=== PATIENT | male | born 1945 | race Caucasian/White ===

== ENCOUNTER 2017-12-10 10:34 | Emergency (ER) | payer MEDICARE, BC, SELFPAY ==
--- NOTE | 2017-12-10 10:43 | DI.RAD.S_ITS ---
PROCEDURE: XR CHEST 1V INDICATIONS: Pacemaker issue TECHNIQUE: One view of the chest was acquired. COMPARISON: [facility], , CHEST 1 VIEW, 05/01/2017, 15:34. FINDINGS: Surgical changes and devices: Cardiac AICD as before Lungs and pleura: No pleural effusions or pneumothorax. Lungs are clear. Mediastinum: Mediastinal contours appear normal. Heart size is normal. Bones and chest wall: No suspicious bony lesions. Overlying soft tissues appear unremarkable. IMPRESSION: No acute disease. Dictated by: Polo Llanes M.D. on 12/10/2017 at 11:42 Approved by: Polo Llanes M.D. on 12/10/2017 at 11:45
[2017-12-10 10:52] VITALS: BP 110/60; PULSE 85; RESP 23; TEMP 36.8; O2SAT 98; BMI 35.5
--- NOTE | 2017-12-10 11:00 | ED_ITS ---
HPI - Arrhythmia/Palpitations General Chief Complaint: Arrhythmia/Palpitations Stated Complaint: PACEMAKER ALARM GOING OFF Time Seen by Provider: 12/10/17 10:42 Source: patient Mode of arrival: ambulatory Limitations: no limitations History of Present Illness HPI narrative: Patient is a 72-year-old male who has a pacemaker in place for atrial fibrillation is also on Eliquis here for evaluation because his pacemaker has been beeping. Patient states that he initially hurt it a couple days ago and thought that it was his watch that was beeping. He states that this morning he did not have his watch on when he heard the BP again when he put his ear down he noticed that it was the pacemaker. He denies any chest pain or shortness of breath. States that he is taking his medication. He also has a defibrillator in place and states that his defibrillator has not fired. He states that he has been feeling more fatigued over the past month. He has a [employer] pacemaker/defibrillator Related Data Home Medications Medication Instructions Recorded Confirmed MULTIVITAMIN (One Daily 1 tab PO Q DAY #0 03/17/11 11/09/17 Multivitamin) lisinopril 10 mg PO QDAY #0 03/17/11 11/09/17 apixaban [Eliquis] 5 mg PO BID #0 09/15/16 11/09/17 levothyroxine [Synthroid] 125 mcg PO QAM #0 09/15/16 11/09/17 naproxen 500 mg PO QDAY #0 09/15/16 11/09/17 [PROBIOTIC] 1 tab PO QPM #0 09/06/17 11/09/17 albuterol sulfate [Ventolin HFA] 2 puff INH QDAY PRN #0 09/06/17 11/09/17 beclomethasone dipropionate [Qvar] 1 puff INH BID #0 09/06/17 11/09/17 buspirone 15 mg PO BID #0 09/06/17 11/09/17 fluticasone [Flonase Allergy 1 spray INTRANASAL QDAY #0 09/06/17 11/09/17 Relief] rosuvastatin [Crestor] 10 mg PO HS #0 09/06/17 11/09/17 Previous Rx's Medication Instructions Recorded trazodone 50 mg PO HS #90 tab 02/03/17 fluoxetine 40 mg capsule 40 mg PO QDAY 90 Days #90 cap 11/25/17 Allergies Allergy/AdvReac Type Severity Reaction Status Date / Time No Known Allergies Allergy Uncoded 11/09/17 14:44 Review of Systems Constitutional Denies chills, Reports fatigue and Denies headache(s) ENT Ears, Nose, Mouth, and Throat: Denies dysphagia, Denies vertigo, Denies dizziness and Denies headache(s) Cardiovascular Denies chest pain, Denies palpitations and Denies dyspnea Comments: Has not felt his defibrillator go off Respiratory Denies cough and Denies dyspnea Gastrointestinal Gastrointestinal: Denies melena, Denies dysphagia and Denies diarrhea Genitourinary Denies dysuria Musculoskeletal Denies myalgias and Denies arthralgias Integumentary/Breasts Denies lesions and Denies rash Neurologic Denies vertigo, Denies dizziness and Denies headache(s) Endocrine Reports fatigue and Denies palpitations Hematologic/Lymphatic Denies easy bleeding and Denies easy bruising [facility] Surgical History History of gastric bypass History of hip replacement History of tonsillectomy Presence of cardiac pacemaker Family History Sister Mental health problem Social History Smoking Status: Former smoker Exam Initial Vital Signs Initial Vital Signs: Vital Signs Temperature 98.3 F 12/10/17 10:52 Pulse Rate 85 12/10/17 10:52 Respiratory Rate 23 12/10/17 10:52 Blood Pressure 110/60 12/10/17 10:52 Pulse Oximetry 98 12/10/17 10:52 Const General: cooperative, healthy appearing, comfortable, well developed, well groomed and No acute distress Orientation: alert, awake and oriented x3 [facility] Head: normal to inspection, normocephalic and atraumatic Chest Other: Pacemaker in place left upper chest without tenderness to palpation Resp Effort & Inspection: normal respiratory effort Auscultation: clear to auscultation bilaterally Cardio Rate: regular rate Rhythm: abnormal rhythm (Irregular) GI Inspection: non-distended Palpation: soft, No firm and No tender Skin Lesions: no lesions Rashes: no rashes Neuro General: alert, awake and oriented x3 Cognition: normal cognition Speech: speech normal Extrem General: normal to inspection and capillary refill normal Psych Appearance: grossly normal and well kempt Course Orders Ordered: ED Orders 12/10/17 10:40 EKG-12 Lead Stat 12/10/17 10:43 XR chest 1V Stat 12/10/17 11:20 Basic Metabolic Panel Stat Complete Blood Count AUTO DIFF Stat Vital Signs - 8 hr 12/10/17 10:52 12/10/17 11:10 12/10/17 12:18 Temperature 98.3 F Pulse Rate 85 77 70 Respiratory Rate 23 17 16 Blood Pressure 110/60 Blood Pressure [Left Arm] 101/45 L 111/70 Pulse Oximetry 98 96 96 12/10/17 12:52 12/10/17 13:15 12/10/17 14:13 Temperature Pulse Rate 71 70 81 Respiratory Rate 19 15 15 Blood Pressure 143/106 H Blood Pressure [Left Arm] 106/52 L 122/75 H Pulse Oximetry 97 98 97 MDM - Arrhythmia/Palpitations Medical Records Attestation: I reviewed the patient's medical records. Lab Data Attestation: I reviewed the patient's lab results. Result diagrams: 12/10/17 11:20 12/10/17 11:20 Lab Results 12/10/17 12/10/17 Range/Units 11:20 11:20 WBC 4.5 (4.5-11.0) X10^3/uL RBC 4.99 (4.5-5.9) X10^6/uL Hgb 15.0 (13.5-17.5) g/dL Hct 44.7 (41-53) % MCV 89.7 (80-100) fL MCH 30.1 (26-34) PG MCHC 33.5 (30-36) % RDW 13.8 (11.6-14.8) % Plt Count 243 (150-400) X10^3/uL Neut % (Auto) 70.1 (50-75) % Lymph % (Auto) 19.9 L (25-40) % [place] % (Auto) 8.5 (3-14) % Eos % (Auto) 1.2 L (2-4) % Baso % (Auto) 0.3 (0-2) % Neut # (Auto) 3100 (2021-8779) /uL Sodium 140 (137-145) mmol/L Potassium 4.2 (3.4-5.1) mmol/L Chloride 104 (98-107) mmol/L Carbon Dioxide 28 (22-32) mmol/L BUN 19 (9-20) mg/dL Creatinine 1.00 (0.66-1.25) mg/dL Estimated GFR > 60.0 (>60) mL/min BUN/Creatinine Ratio 19.0 (6-22) Glucose 127 H (80-110) mg/dL Calcium 9.7 (8.4-10.2) mg/dL Imaging Data Chest x-ray: Radiologist's impression: PROCEDURE: XR CHEST 1V INDICATIONS: Pacemaker issue TECHNIQUE: One view of the chest was acquired. COMPARISON: [facility], , CHEST 1 VIEW, 05/01/2017, 15:34. FINDINGS: Surgical changes and devices: Cardiac AICD as before Lungs and pleura: No pleural effusions or pneumothorax. Lungs are clear. Mediastinum: Mediastinal contours appear normal. Heart size is normal. Bones and chest wall: No suspicious bony lesions. Overlying soft tissues appear unremarkable. IMPRESSION: No acute disease. Dictated by: Polo Llanes M.D. on 12/10/2017 at 11:42 Approved by: Polo Llanes M.D. on 12/10/2017 at 11:45 ECG Data Attestation: I personally reviewed and interpreted this ECG as follows: Prior ECG tracings: available for review Interpretation: Prior EKG dated March 07, 2012 Atrial fibrillation Ventricular rate of [address] T wave changes EKG dated today time 1040 hr Irregular rhythm Ventricular rate at 80 Ventricularly paced QRS 132 milliseconds MDM Narrative Medical decision making narrative: Patient denies any chest pain. Chest x-ray shows that the leads are in the correct spot and not broken. Uncertain as the rhythm on the EKG. Has 2 different QRS morphologies but does appear to be ventricularly paced. [employer] came to interrogate the pacemaker and states that the patient has been in AFib for the past 6 days. The beeping that the patient was hearing was not alarmed that was set on the pacemaker to be put when he has been in AFib for longer than 6 hr. The [employer] rep states that this alarm was not set at to notify the clinic. I discussed the case with Dr. Mi with Cardiology who states that if the patient's rate is controlled, he is anticoagulated, is not hypotensive that the patient can be discharged home and follow up in the clinic at the beginning of next week. The patient does fulfill all of these criteria. I discussed this with the patient. His is at bedside. They were asking to go home. They are given return precautions. They expressed understanding and agreement with plan. Discharge Plan Departure Patient Disposition: Home, Self-Care Clinical Impression: A-fib, Pacemaker Discharge Date/Time: 12/10/17 14:15 Interventions: ED Discharge Assessment Last Done: 12/10/17 14:13 Instructions: DI for Atrial Fibrillation Activity Restrictions/Additional Instructions: Continue all of your medications as directed. Contact your aviation consultant on Tuesday morning for a follow-up. Return to the emergency department for any new symptoms to include chest pain, shortness of breath, palpitations, or any other concerning symptoms. Prescriptions: No Action lisinopril 10 MG tablet 10 mg PO QDAY Qty: 0 RF: 0 MULTIVITAMIN (One Daily Multivitamin) 1 tab PO Q DAY Qty: 0 RF: 0 levothyroxine [Synthroid] 125 MCG tablet 125 mcg PO QAM Qty: 0 RF: 0 naproxen 500 MG tablet 500 mg PO QDAY Qty: 0 RF: 0 apixaban [Eliquis] 5 MG tablet 5 mg PO BID Qty: 0 RF: 0 trazodone 50 MG tablet 50 mg PO HS Qty: 90 RF: 1 buspirone 15 MG tablet 15 mg PO BID Qty: 0 RF: 0 rosuvastatin [Crestor] 10 MG tablet 10 mg PO HS Qty: 0 RF: 0 beclomethasone dipropionate [Qvar] 80 MCG/PUFF aerosol 1 puff INH BID Qty: 0 RF: 0 albuterol sulfate [Ventolin HFA] 90 MCG/PUFF HFA aerosol inhaler 2 puff INH QDAY PRNQty: 0 RF: 0 [PROBIOTIC] 1 tab PO QPM Qty: 0 RF: 0 fluticasone [Flonase Allergy Relief] 9.9 ML spray,suspension 1 spray Intranasal QDAY Qty: 0 RF: 0 fluoxetine 40 mg capsule 40 mg PO QDAY 90 Days Qty: 90 RF: 3
--- NOTE | 2017-12-10 11:02 | PC.NURSE ---
called [employer] for pt. waiting now on a call back from local rep.
[2017-12-10 11:10] VITALS: BP 101/45; PULSE 77; RESP 17; O2SAT 96
[2017-12-10 11:29] LABS: Add Manual Diff / Slide Review NO; Basophils Percent Auto 0.3 % (0-2); Eosinophils Percent Auto 1.2 % (2-4); Hematocrit 44.7 % (41-53); Lymphocytes Percent Auto 19.9 % (25-40); Mean Corpuscular HGB Conc 33.5 % (30-36); Mean Corpuscular Hemoglobin 30.1 PG (26-34); Mean Corpuscular Volume 89.7 fL (80-100); Monocytes Percent Auto 8.5 % (3-14); Neutrophils Absolute Auto 3100 /uL (3000-5900); Neutrophils Percent Auto 70.1 % (50-75); Platelet Count 243 X10^3/uL (150-400); Red Blood Cell Count 4.99 X10^6/uL (4.5-5.9); Red Cell Distribution Width 13.8 % (11.6-14.8); White Blood Cell Count 4.5 X10^3/uL (4.5-11.0)
--- NOTE | 2017-12-10 11:29 | PC.NURSE ---
Pt reports has been hearing humming, initially thought it was his watch, but once watch was removed, he continued to hear humming. He believes it is his pacemaker.
[2017-12-10 11:45] LABS: Blood Urea Nitrogen 19 mg/dL (9-20); Calcium 9.7 mg/dL (8.4-10.2); Carbon Dioxide 28 mmol/L (22-32); Chloride 104 mmol/L (98-107); Estimated Glomerular Filt Rate > 60.0 mL/min (>60); Glucose 127 mg/dL (80-110); HEMOLYSIS 17 (0-50); Potassium 4.2 mmol/L (3.4-5.1); Sodium 140 mmol/L (137-145)
[2017-12-10 12:18] VITALS: BP 111/70; PULSE 70; RESP 16; O2SAT 96
[2017-12-10 12:52] VITALS: BP 106/52; PULSE 71; RESP 19; O2SAT 97
[2017-12-10 13:15] VITALS: BP 122/75; PULSE 70; RESP 15; O2SAT 98
[2017-12-10 14:13] VITALS: BP 143/106; PULSE 81; RESP 15; O2SAT 97
== END 2017-12-10 14:15 | disposition home or self-care (01) ==
PROVIDERS: Emergency Provider Emergency Medicine; Family Provider Family Medicine; PCP Family Medicine
DX: I48.91 Unspecified atrial fibrillation (principal); Z95.0 Presence of cardiac pacemaker
CPT/HCPCS: 36591; 71045; 80048; 85025; 93005; 99283; 99285

== ENCOUNTER 2019-04-03 14:05 | Emergency (ER) | payer MEDICARE, BC, SELFPAY ==
[2019-04-03 14:14] VITALS: BP 163/104; PULSE 67; RESP 22; TEMP 36.7; O2SAT 98
--- NOTE | 2019-04-03 14:17 | DI.RAD.S_ITS ---
PROCEDURE: XR HIP W PEL IF DONE RT 2V INDICATIONS: felt pop in right hip, increased pain, history of JOSE DAVID TECHNIQUE: AP pelvis with lateral view(s) of the right hip(s). COMPARISON: CT IVP 09/21/2017. FINDINGS: Bones: Bilateral total hip arthroplasties. No periprosthetic lucency to suggest loosening or infection. The screw adjacent to the right femoral stem partially visualized. No dislocation. No fracture seen. Osteopenia. Pelvic ring appears intact. No suspicious bony lesions. Soft tissues: The visualized bowel gas pattern is normal. No suspicious soft tissue calcifications. IMPRESSION: No fracture or dislocation. Stable appearance of the bilateral total hip arthroplasties. Dictated by: Rafael Tapia M.D. on 04/03/2019 at 15:02 Approved by: Rafael Tapia M.D. on 04/03/2019 at 15:04
[2019-04-03] MEDS: MORPHINE 4 MG/ML INJ IV (14:44)
--- NOTE | 2019-04-03 15:02 | ED_ITS ---
HPI - Extremity Injury (Lower) <BETTY Barnhart - Last Filed: 04/03/19 15:54> General Chief Complaint: Extremity Injury, Lower Stated Complaint: RIGHT HIP INJURY Time Seen by Provider: 04/03/19 14:10 Source: patient and family Mode of arrival: Wheelchair Limitations: no limitations History of Present Illness HPI Narrative: This is a 73-year-old gentleman, former smoker, who presents to ED with friend with chief complain of nontraumatic right hip pain since Tuesday. 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 Patient reports after he stood up from a chair and took a couple of steps he felt sudden and severe pain. Patient has been using a with cane to ambulate up until today. Patient was not able to walk due to severe pain today. Patient reports intact sensation. Patient denies fever, chills, nausea or vomiting, rash or warm to touch on the right hip. Patient had taken Naprosyn, gabapentin, methocarbamol at home prior coming into ED for pain management but with poor pain management. Patient reports he does have an appointment with Dr. Hartley at [facility] orthopedic tomorrow but was unable to wait until then and due to severe pain. Related Data Home Medications Medication Instructions Recorded Confirmed MULTIVITAMIN (One Daily 1 tab PO Q DAY #0 03/17/11 03/16/19 Multivitamin) lisinopril 10 mg PO QDAY #0 03/17/11 03/16/19 apixaban [Eliquis] 5 mg PO BID #0 09/15/16 03/16/19 levothyroxine [Synthroid] 125 mcg PO QAM #0 09/15/16 03/16/19 naproxen 500 mg PO QDAY #0 09/15/16 03/16/19 [PROBIOTIC] 1 tab PO QPM #0 09/06/17 03/16/19 albuterol sulfate [Ventolin HFA] 2 puff INH QDAY PRN #0 09/06/17 03/16/19 beclomethasone dipropionate [Qvar] 1 puff INH BID #0 09/06/17 03/16/19 fluticasone propionate [Flonase 1 spray INTRANASAL QDAY #0 09/06/17 03/16/19 Allergy Relief] furosemide 20 mg tablet 10 mg PO DAILY tab 01/25/18 03/16/19 metoprolol tartrate 25 mg tablet 25 mg PO ONCE tab 01/25/18 03/16/19 metoprolol succinate 50 mg PO 90 Days #90 tab 05/02/18 03/16/19 tablet,extended release 24 hr methocarbamol 500 mg tablet 500 mg PO TID 12/22/18 03/16/19 buspirone 15 mg tablet 15 mg PO BID tab 01/26/19 03/16/19 spironolactone 25 mg tablet 25 mg PO DAILY tab 01/26/19 03/16/19 levothyroxine 137 mcg tablet 137 mcg PO DAILY tab 03/16/19 03/16/19 mirabegron 50 mg tablet,extended mg PO 03/16/19 03/16/19 release 24 hr Previous Rx's Medication Instructions Recorded trazodone 50 mg tablet 50 mg PO HS #90 tab 12/20/18 fluoxetine 20 mg capsule 40 mg PO QDAY #20 cap 01/26/19 hydrocodone-acetaminophen [[place]wood] 1 tab PO Q6H PRN #10 tab 04/03/19 Allergies Allergy/AdvReac Type Severity Reaction Status Date / Time No Known Drug Allergies Allergy Verified 04/03/19 14:16 Review of Systems <BETTY Barnhart - Last Filed: 04/03/19 15:54> Review of Systems Narrative: General: Denies fever, chills, fatigue, malaise, sweats. HEENT: Denies sinus pain, ear pain, sore throat, difficulty swallowing, dizziness. Respiratory: Denies dyspnea, cough, wheezing, hemoptysis, sputum. Cardiovascular: Denies chest pain, palpitations, orthopnea, edema. Gastrointestinal: Denies nausea, vomiting, abdominal pain, diarrhea, constipation, melena. : Denies dysuria, frequency, incontinence, hematuria, urinary retention. Musculoskeletal: See HPI Skin: Denies rash, skin lesions, or other. Neurologic: Denies weakness, headache, numbness, change in speech, confusion, seizures, incoordination. Psychiatric: No concerning psychosocial issues. 12-point review of systems is negative except for those stated above. Patient History <BETTY Barnhart - Last Filed: 04/03/19 15:54> Surgical History History of gastric bypass History of hip replacement History of tonsillectomy Presence of cardiac pacemaker Family History Sister Mental health problem Social History Smoking Status: Former smoker Substance Use Type: does not use Exam <BETTY Banrhart - Last Filed: 04/03/19 15:54> Narrative Exam Narrative: General appearance: well developed, well nourished, in moderate distress with facial grimacing morning obviously due to pain. Head: normocephalic, atraumatic, no scalp lesions, non-tender. Eye: pupil equal, round. EOMI. Nose: nares patent. Oral: mucosa moist. Neck/Thyroid: neck supple, full range of motion, no visible masses. Skin: no suspicious rashes, lesions over visible areas. Warm and dry. Heart: no clubbing, no cyanosis, no edema. Lungs: Breathing even and unlabored. No stridor. No accessory muscles used. Chest: normal shape and expansion. Abdomen: non-obese, non-distended. Neurologic: alert and oriented. Cognitive exam, [employer] and PNS grossly intact on informal exam. Psych: good eye contact, normal affect. Initial Vital Signs Initial Vital Signs: Vital Signs Temperature 98.0 F 04/03/19 14:14 Pulse Rate 67 04/03/19 14:14 Respiratory Rate 22 04/03/19 14:14 Blood Pressure 163/104 H 04/03/19 14:14 Pulse Oximetry 98 04/03/19 14:14 Extrem Right upper extremity: normal to inspection and full ROM Left upper extremity: normal to inspection and full ROM Right lower extremity: hip/thigh Details: normal to inspection and tenderness; no swelling, ROM normal (Due to pain with little movements), no lacerations and no unusual warmth and foot Details: normal capillary refill, no edema and vascular exam Details: dorsalis pedis pulse present and normal capillary refill Left lower extremity: normal to inspection and full ROM <Shayla Goins DO - Last Filed: 04/04/19 07:13> Initial Vital Signs Initial Vital Signs: Vital Signs Temperature 98.0 F 04/03/19 14:14 Pulse Rate 67 04/03/19 14:14 Respiratory Rate 22 04/03/19 14:14 Blood Pressure 163/104 H 04/03/19 14:14 Pulse Oximetry 98 04/03/19 14:14 Scores <Rahul LianSOM horneP - Last Filed: 04/03/19 15:54> GCS Rosebud coma scale eye opening: Spontaneous Rosebud coma scale verbal response: Orientated Rosebud coma scale motor response: Obey commands Derrick coma scale total score: 15 Course <Rahul ReaMerlySOM horneP - Last Filed: 04/03/19 15:54> Orders Ordered: Discontinued Medications Morphine Sulfate (Morphine) 4 mg IV NOW ONE Stop: 04/03/19 14:26 Last Admin: 04/03/19 14:44 Dose: 4 mg Documented by: JACKSON Vital Signs Vital signs: Vital Signs - 8 hr 04/03/19 14:14 04/03/19 15:38 Temperature 98.0 F Pulse Rate 67 76 Respiratory Rate 22 18 Blood Pressure 163/104 H Blood Pressure [Right Wrist] 162/102 H Pulse Oximetry 98 96 <Shayla Goins DO - Last Filed: 04/04/19 07:13> Orders Ordered: Discontinued Medications Morphine Sulfate (Morphine) 4 mg IV NOW ONE Stop: 04/03/19 14:26 Last Admin: 04/03/19 14:44 Dose: 4 mg Documented by: JACKSON Vital Signs Vital signs: Vital Signs - 8 hr 04/03/19 14:14 04/03/19 15:38 Temperature 98.0 F Pulse Rate 67 76 Respiratory Rate 22 18 Blood Pressure 163/104 H Blood Pressure [Right Wrist] 162/102 H Pulse Oximetry 98 96 MDM - Extremity Injury (Lower) <Rahul LianSOM horneP - Last Filed: 04/03/19 15:54> Differential Diagnosis Differential diagnosis: Likely other (Acute hip pain, hip strain, hip nondisplaced fracture, hip dislocation) Medical Records Attestation: I reviewed the patient's medical records. Imaging Data XR-Hip RT: Radiologist's impression: [address] [address] XRay Report Signed Patient: Quentin Downinglis#: [id number] : 4Acct:[id number] Age/Sex: 73 / MDate of Service: 04/03/19 Loc: ED Accession Number: [id number] Procedure: XR hip w pel if done RT 2V Ordering Provider: Rahul Dobbins PROCEDURE: XR HIP W PEL IF DONE RT 2V INDICATIONS: felt pop in right hip, increased pain, history of JOSE DAVID TECHNIQUE: AP pelvis with lateral view(s) of the right hip(s). COMPARISON: CT IVP 09/21/2017. FINDINGS: Bones: Bilateral total hip arthroplasties. No periprosthetic lucency to suggest loosening or infection. The screw adjacent to the right femoral stem partially visualized. No dislocation. No fracture seen. Osteopenia. Pelvic ring appears intact. No suspicious bony lesions. Soft tissues: The visualized bowel gas pattern is normal. No suspicious soft tissue calcifications. IMPRESSION: No fracture or dislocation. Stable appearance of the bilateral total hip arthroplasties. Dictated by: Rafael Tapia M.D. on 04/03/2019 at 15:02 Approved by: Rafael Tapia M.D. on 04/03/2019 at 15:04 [facility] Narrative Medical decision making narrative: This is a 73-year-old gentleman who presents to ED with non traumatic right hip pain after he stood up from a chair and to couple of steps forward. Patient has history of artificial her bilateral hips for last 26 yrs. Patient denies fever, chills, nausea or vomiting, or warm to touch. Patient reports every little movements causes severe pain. Patient was medicated with IV morphine and x-ray test was obtained on right hip and shows no acute findings such as fracture, dislocation. Patient was able to ambulate with a walker that was provided from ED in stable gait. Patient has an appointment with orthopedic doctor tomorrow at [facility]. Patient is being discharged to home with [place] for pain management and advised to continue with [id number] medication. Return precautions were discussed with the patient and patient verbalized understanding and agrees with the treatment plan. Discharge Plan Departure Patient Disposition: Home Clinical Impression: Acute pain of right hip Discharge Date/Time: 04/03/19 15:49 Activity Restrictions/Additional Instructions: You have been diagnosed with [acute right hip pain. Right hip x-ray test does not show acute findings such as fractures or dislocation today. You were medicated with morphine IV while in ED which you so improvement in pain. You were able to ambulate with a walker and we will dispense walker for home use.]. What to do: *Take your medications as directed. Gracewood is narcotic pain medications any may cause drowsiness so please take precautions such as not to drive, drink alcohol, or operate any heavy equipments. It may cause constipation so please it high- fiber diet, increase her water intake and incorporating facu-ghr-[id number] stool softener as well. You can continue [id number] Tylenol Naprosyn if he does not interferes with Eliquis. You can take upto 4000 mg of tylenol in 24 hr period. *Follow up with your primary care provider in 2-3 days, call for an appointment. Please keep your appointment as scheduled with scheduled [facility] doctor tomorrow. Let them know you were seen in the ED and that we asked you to be seen in follow up. *Return to ED if you have any new, worsening, or concerning symptoms, such as [pain now managed with pain medication, numbness/tingling on affected leg, unable to ambulate, weakness to leg, fever or any acute concerns]. Prescriptions: New hydrocodone-acetaminophen [[place]wood] 5-325 mg tablet 1 tab PO Q6H PRN (Reason: pain) Qty: 10 RF: 0 No Action metoprolol tartrate 25 mg tablet 25 mg PO ONCE RF: 0 furosemide 20 mg tablet 10 mg PO DAILY RF: 0 spironolactone 25 mg tablet 25 mg PO DAILY RF: 0 metoprolol succinate 50 mg tablet extended release 24 hr PO 90 Days Qty: 90 RF: 0 methocarbamol 500 mg tablet 500 mg PO TID RF: 0 Myrbetriq 50 mg tablet extended release 24 hr PO RF: 0 levothyroxine 137 mcg tablet 137 mcg PO DAILY RF: 0 buspirone 15 mg tablet 15 mg PO BID RF: 0 lisinopril 10 MG tablet 10 mg PO QDAY Qty: 0 RF: 0 MULTIVITAMIN (One Daily Multivitamin) 1 tab PO Q DAY Qty: 0 RF: 0 levothyroxine [Synthroid] 125 MCG tablet 125 mcg PO QAM Qty: 0 RF: 0 naproxen 500 MG tablet 500 mg PO QDAY Qty: 0 RF: 0 apixaban [Eliquis] 5 MG tablet 5 mg PO BID Qty: 0 RF: 0 beclomethasone dipropionate [Qvar] 80 MCG/PUFF aerosol 1 puff INH BID Qty: 0 RF: 0 albuterol sulfate [Ventolin HFA] 90 MCG/PUFF HFA aerosol inhaler 2 puff INH QDAY PRNQty: 0 RF: 0 [PROBIOTIC] 1 tab PO QPM Qty: 0 RF: 0 fluticasone propionate [Flonase Allergy Relief] 9.9 ML spray,suspension 1 spray Intranasal QDAY Qty: 0 RF: 0 trazodone 50 mg tablet 50 mg PO HS Qty: 90 RF: 3 fluoxetine 20 mg capsule 40 mg PO QDAY Qty: 20 RF: 1 Referrals: [facility] [Provider Group] Matheus Jensen MD [Primary Care Provider] -
[2019-04-03 15:38] VITALS: BP 162/102; PULSE 76; RESP 18; O2SAT 96
== END 2019-04-03 15:49 | disposition home or self-care (01) ==
PROVIDERS: Emergency Provider Nurse Practitioner Family; Family Provider Family Medicine; PCP Family Medicine
DX: M25.551 Pain in right hip (principal); Z96.643 Presence of artificial hip joint, bilateral
CPT/HCPCS: 73502; 96374; 99282; 99284; J2270

== ENCOUNTER 2019-05-10 10:53 | Emergency (ER) | payer MEDICARE, BC, SELFPAY ==
[2019-05-10 11:00] VITALS: BP 153/96; PULSE 72; RESP 28; TEMP 36.8; O2SAT 95; BMI 39.9
[2019-05-10 11:34] VITALS: BP 150/87; PULSE 70; RESP 24; O2SAT 96
--- NOTE | 2019-05-10 11:34 | ED_ITS ---
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 He states he went for a scheduled EKG at Dr. ireland office and they didn't like the way he looked so they sent him here. 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 He states when he walks he has to stop after a couple see to take a break. He states if he tries to lie flat he gets very short of breath. He states he has had increasing swelling in his lower extremities. He denies any chest pain or pressure, no syncope or lightheadedness. No fevers or chills. He has an up cough that is been mildly productive with clear phlegm. He has had some mild constipation no issues with urination. Patient does have a history of CHF and takes diuretics. Related Data Home Medications Medication Instructions Recorded Confirmed MULTIVITAMIN (One Daily 1 tab PO Q DAY #0 03/17/11 03/16/19 Multivitamin) lisinopril 10 mg PO QDAY #0 03/17/11 03/16/19 apixaban [Eliquis] 5 mg PO BID #0 09/15/16 03/16/19 levothyroxine [Synthroid] 125 mcg PO QAM #0 09/15/16 03/16/19 naproxen 500 mg PO QDAY #0 09/15/16 03/16/19 [PROBIOTIC] 1 tab PO QPM #0 09/06/17 03/16/19 albuterol sulfate [Ventolin HFA] 2 puff INH QDAY PRN #0 09/06/17 03/16/19 beclomethasone dipropionate [Qvar] 1 puff INH BID #0 09/06/17 03/16/19 fluticasone propionate [Flonase 1 spray INTRANASAL QDAY #0 09/06/17 03/16/19 Allergy Relief] furosemide 20 mg tablet 10 mg PO DAILY tab 01/25/18 03/16/19 metoprolol tartrate 25 mg tablet 25 mg PO ONCE tab 01/25/18 03/16/19 metoprolol succinate 50 mg PO 90 Days #90 tab 05/02/18 03/16/19 tablet,extended release 24 hr methocarbamol 500 mg tablet 500 mg PO TID 12/22/18 03/16/19 buspirone 15 mg tablet 15 mg PO BID tab 01/26/19 03/16/19 spironolactone 25 mg tablet 25 mg PO DAILY tab 01/26/19 03/16/19 levothyroxine 137 mcg tablet 137 mcg PO DAILY tab 03/16/19 03/16/19 mirabegron 50 mg tablet,extended mg PO 03/16/19 03/16/19 release 24 hr Previous Rx's Medication Instructions Recorded trazodone 50 mg tablet 50 mg PO HS #90 tab 12/20/18 fluoxetine 20 mg capsule 40 mg PO QDAY #20 cap 01/26/19 hydrocodone-acetaminophen [[place]] 1 tab PO Q6H PRN #10 tab 04/03/19 furosemide [Lasix] 40 mg PO DAILY #4 tab 05/10/19 Allergies Allergy/AdvReac Type Severity Reaction Status Date / Time No Known Drug Allergies Allergy Verified 04/03/19 14:16 Review of Systems Review of Systems ROS Unobtainable: All systems reviewed & are unremarkable except as noted in HPI and below Patient History Surgical History History of gastric bypass History of hip replacement History of tonsillectomy Presence of cardiac pacemaker Social History Smoking Status: Former smoker Smoking Status: Former smoker alcohol intake frequency: holidays/special occasions only Substance Use Type: does not use Exam Narrative Exam Narrative: GEN: Obese well-appearing male, alert and oriented x 3, patient appears to be in mild distress. HEENT: Atraumatic, pupils are equal round reactive to light, extraocular movements are intact. HEART: Regular rate and rhythm without murmur, clicks, rubs. No JVD appreciated but this may be hard to appreciate secondary to patient's habitus. Patient has 2+ edema bilateral lower extremities. LUNGS:Lungs clear to auscultation, no wheezes, rales, crackles, chest moves symmetrically, no tachypnea accessory muscle use ABD:bowel sounds normal, soft, non-tender, no guarding, rebound, rigidity, no masses noted, no hepatosplenomegaly :No CVA tenderness MSCL: Non-tender. NEURO:CN 2-12 intact, sensation normal. SKIN: no rash, no erythema. Initial Vital Signs Initial Vital Signs: Vital Signs Temperature 98.2 F 05/10/19 11:00 Pulse Rate 72 05/10/19 11:00 Respiratory Rate 28 H 05/10/19 11:00 Blood Pressure 153/96 H 05/10/19 11:00 Pulse Oximetry 95 05/10/19 11:00 Course Orders Ordered: ED Orders 05/10/19 11:17 B Type Natriuretic Peptide Stat Basic Metabolic Panel Stat Complete Blood Count AUTO DIFF Stat Partial Thromboplastin Time Stat Prothrombin Time INR Stat Troponin & CK Cardiac Panel Stat 05/10/19 11:48 XR chest 1V Stat Discontinued Medications Furosemide (Lasix) 40 mg IV NOW ONE Stop: 05/10/19 11:48 Last Admin: 05/10/19 12:09 Dose: 40 mg Documented by: FLEX Vital Signs Vital signs: Vital Signs - 8 hr 05/10/19 11:00 05/10/19 11:34 05/10/19 12:58 Temperature 98.2 F Pulse Rate 72 70 Respiratory Rate 28 H 24 Blood Pressure 153/96 H Blood Pressure [Left Arm] 150/87 H Pulse Oximetry 95 96 93 05/10/19 13:15 Temperature Pulse Rate 70 Respiratory Rate Blood Pressure 157/92 H Blood Pressure [Left Arm] Pulse Oximetry 98 MDM - SOB/Dyspnea Lab Data Attestation: I reviewed the patient's lab results. Result diagrams: 05/10/19 11:17 05/10/19 11:17 Labs: Lab Results 05/10/19 05/10/19 05/10/19 Range/Units 11:17 11:17 11:17 WBC 5.6 (4.5-11.0) X10^3/uL RBC 4.40 L (4.5-5.9) X10^6/uL Hgb 13.2 L (13.5-17.5) g/dL Hct 39.6 L (41-53) % MCV 89.8 (80-100) fL MCH 30.0 (26-34) PG MCHC 33.4 (30-36) % RDW 13.9 (11.6-14.8) % Plt Count 271 (150-400) X10^3/uL Neut % (Auto) 77.8 H (50-75) % Lymph % (Auto) 11.5 L (25-40) % [place] % (Auto) 8.8 (3-14) % Eos % (Auto) 1.2 L (2-4) % Baso % (Auto) 0.7 (0-2) % Neut # (Auto) 4300 (2359-8241) /uL Lymph # (Auto) 600 L (2716-2735) /uL [place] # (Auto) 500 (0-900) /uL Eos # (Auto) 100 (0-450) /uL Baso # (Auto) 0 (0-100) /uL PT 18.5 H (10.1-12.7) SECONDS INR 1.6 H (0.9-1.3) APTT 32 (26.4-36.2) SECONDS Sodium 136 L (137-145) mmol/L Potassium 4.2 (3.4-5.1) mmol/L Chloride 101 (98-107) mmol/L Carbon Dioxide 29 (22-32) mmol/L BUN 15 (9-20) mg/dL Creatinine 0.70 (0.66-1.25) mg/dL Estimated GFR > 60.0 (>60) mL/min BUN/Creatinine Ratio 21.4 (6-22) Glucose 122 H (80-110) mg/dL Calcium 9.4 (8.4-10.2) mg/dL Total Creatine Kinase 89 (55-170) U/L CK-MB (CK-2) TNP CK-MB (CK-2) Rel Index TNP Troponin I < 0.012 (0.01-0.034) ng/mL B-Natriuretic Peptide 366 H (<100) Imaging Data Chest x-ray: Radiologist's impression: [address] [id number] XRay Report Signed Patient: Quentin Downing#: [id number] : 4Acct:[id number] Age/Sex: 73 / MDate of Service: 05/10/19 Loc: ED Accession Number: [id number] Procedure: XR chest 1V Ordering Provider: Shayla Goins D.O. PROCEDURE: XR CHEST 1V INDICATIONS: increasing shortness of breath TECHNIQUE: One view of the chest was acquired. COMPARISON: [facility], , CHEST 1 VIEW, 05/01/2017, 15:34. [facility], , XR CHEST 1V, 12/10/2017, 11:03. FINDINGS: Surgical changes and devices: There is a cardiac pacemaker with leads in appropriate position. Lungs and pleura: Mild pulmonary edema. Left basilar opacity may be consolidation or atelectasis. No large pleural effusions or pneumothorax. Mediastinum: Mediastinal contours appear normal. Heart size is normal. Bones and chest wall: No suspicious bony lesions. Overlying soft tissues appear unremarkable. IMPRESSION: Congestive heart failure. Dictated by: Stephen Saldaña M.D. on 05/10/2019 at 12:05 Approved by: Stephen Saldaña M.D. on 05/10/2019 at 12:51 ECG Data Attestation: I personally reviewed and interpreted this ECG as follows: Prior ECG tracings: available for review Interpretation: Ventricularly paced rhythm with a rate of 69 QRS of 153 QTC of 46. No ST elevation or depression appreciated patient has prior EKG from 12/10/2017 appears similar. [facility] Narrative Medical decision making narrative: Patient is able to ambulate to the bathroom and back without any issue or drop in his O2 sat. Patient states he is feeling better plan to increase patient's Lasix for the next several days and have him follow closely with his physician for recheck and to follow his electrolytes as well. Chest x-ray does show congestive heart failure, BNP is slightly elevated. Patient's troponin is negative and he has been asymptomatic other than shortness of breath. Discharge Plan Departure Patient Disposition: Home Clinical Impression: CHF (congestive heart failure) Discharge Date/Time: 05/10/19 13:16 Instructions: DI for Heart Failure Activity Restrictions/Additional Instructions: Follow up with primary care or your title specialist in the next several days for recheck. Call for an appointment. Increase your Lasix to 40 mg daily for the next 5 days. Continue your other home medications as prescribed. Return to the emergency department for fevers greater 100.4 F, worsening shortness of breath, lightheadedness or passing out, new chest pain or pressure, persistent nausea vomiting rapidly worsening swelling in her legs or other new or concerning symptoms. Prescriptions: New furosemide [Lasix] 40 mg tablet 40 mg PO DAILY Qty: 4 RF: 0 No Action metoprolol tartrate 25 mg tablet 25 mg PO ONCE RF: 0 furosemide 20 mg tablet 10 mg PO DAILY RF: 0 spironolactone 25 mg tablet 25 mg PO DAILY RF: 0 metoprolol succinate 50 mg tablet extended release 24 hr PO 90 Days Qty: 90 RF: 0 methocarbamol 500 mg tablet 500 mg PO TID RF: 0 Myrbetriq 50 mg tablet extended release 24 hr PO RF: 0 levothyroxine 137 mcg tablet 137 mcg PO DAILY RF: 0 buspirone 15 mg tablet 15 mg PO BID RF: 0 lisinopril 10 MG tablet 10 mg PO QDAY Qty: 0 RF: 0 MULTIVITAMIN (One Daily Multivitamin) 1 tab PO Q DAY Qty: 0 RF: 0 levothyroxine [Synthroid] 125 MCG tablet 125 mcg PO QAM Qty: 0 RF: 0 naproxen 500 MG tablet 500 mg PO QDAY Qty: 0 RF: 0 apixaban [Eliquis] 5 MG tablet 5 mg PO BID Qty: 0 RF: 0 beclomethasone dipropionate [Qvar] 80 MCG/PUFF aerosol 1 puff INH BID Qty: 0 RF: 0 albuterol sulfate [Ventolin HFA] 90 MCG/PUFF HFA aerosol inhaler 2 puff INH QDAY PRNQty: 0 RF: 0 [PROBIOTIC] 1 tab PO QPM Qty: 0 RF: 0 fluticasone propionate [Flonase Allergy Relief] 9.9 ML spray,suspension 1 spray Intranasal QDAY Qty: 0 RF: 0 trazodone 50 mg tablet 50 mg PO HS Qty: 90 RF: 3 fluoxetine 20 mg capsule 40 mg PO QDAY Qty: 20 RF: 1 hydrocodone-acetaminophen [[place]] 5-325 mg tablet 1 tab PO Q6H PRN (Reason: pain) Qty: 10 RF: 0 Referrals: Matheus Jensen MD [Primary Care Provider] - Rodger Ospina MD [Physician] -
--- NOTE | 2019-05-10 11:48 | DI.RAD.S_ITS ---
PROCEDURE: XR CHEST 1V INDICATIONS: increasing shortness of breath TECHNIQUE: One view of the chest was acquired. COMPARISON: [facility], [place], CHEST 1 VIEW, 05/01/2017, 15:34. [facility], [place], XR CHEST 1V, 12/10/2017, 11:03. FINDINGS: Surgical changes and devices: There is a cardiac pacemaker with leads in appropriate position. Lungs and pleura: Mild pulmonary edema. Left basilar opacity may be consolidation or atelectasis. No large pleural effusions or pneumothorax. Mediastinum: Mediastinal contours appear normal. Heart size is normal. Bones and chest wall: No suspicious bony lesions. Overlying soft tissues appear unremarkable. IMPRESSION: Congestive heart failure. Dictated by: Stephen Saldaña M.D. on 05/10/2019 at 12:05 Approved by: Stephen Saldaña M.D. on 05/10/2019 at 12:51
[2019-05-10 11:56] LABS: Add Manual Diff / Slide Review NO; Basophils Absolute Auto 0 /uL (0-100); Basophils Percent Auto 0.7 % (0-2); Eosinophils Absolute Auto 100 /uL (0-450); Eosinophils Percent Auto 1.2 % (2-4); Hematocrit 39.6 % (41-53); Hemoglobin 13.2 g/dL (13.5-17.5); Lymphocytes Absolute Auto 600 /uL (1100-4500); Lymphocytes Percent Auto 11.5 % (25-40); Mean Corpuscular HGB Conc 33.4 % (30-36); Mean Corpuscular Volume 89.8 fL (80-100); Monocytes Absolute Auto 500 /uL (0-900); Monocytes Percent Auto 8.8 % (3-14); Neutrophils Absolute Auto 4300 /uL (1500-7000); Neutrophils Percent Auto 77.8 % (50-75); Platelet Count 271 X10^3/uL (150-400); Red Cell Distribution Width 13.9 % (11.6-14.8); White Blood Cell Count 5.6 X10^3/uL (4.5-11.0)
[2019-05-10 12:02] LABS: BUN Creatinine Ratio 21.4 (6-22); Blood Urea Nitrogen 15 mg/dL (9-20); Calcium 9.4 mg/dL (8.4-10.2); Carbon Dioxide 29 mmol/L (22-32); Chloride 101 mmol/L (98-107); Creatine Kinase 89 U/L (55-170); Estimated Glomerular Filt Rate > 60.0 mL/min (>60); Glucose 122 mg/dL (80-110); HEMOLYSIS < 15 (0-50); INR 1.6 (0.9-1.3); Potassium 4.2 mmol/L (3.4-5.1); Prothrombin Time 18.5 SECONDS (10.1-12.7); Sodium 136 mmol/L (137-145)
[2019-05-10 12:04] LABS: PTT Partial Thromboplastin Tim 32 SECONDS (26.4-36.2)
[2019-05-10] MEDS: FUROSEMIDE 40 MG/4 ML VIAL IV (12:09)
[2019-05-10 12:14] LABS: Troponin I < 0.012 ng/mL (0.01-0.034)
[2019-05-10 12:19] LABS: B Type Natriuretic Peptide 366 (<100)
[2019-05-10 12:58] VITALS: O2SAT 93
--- NOTE | 2019-05-10 12:59 | PC.NURSE ---
Ambulated the pt with an o2 saturation reader, pt was steady at 92-93 with no oxygen. Pt stated that he was able to breathe a little bit better and that he was ready to go home. Pt declined being hooked back up to the monitor. DR silva.
[2019-05-10 13:15] VITALS: BP 157/92; PULSE 70; O2SAT 98
== END 2019-05-10 13:16 | disposition home or self-care (01) ==
PROVIDERS: Emergency Provider Emergency Medicine; Family Provider Family Medicine; PCP Family Medicine
DX: I11.0 Hypertensive heart disease with heart failure (principal); I50.9 Heart failure, unspecified; Z95.0 Presence of cardiac pacemaker
CPT/HCPCS: 36415; 71045; 80048; 82550; 83880; 84484; 85025; 85610; 85730; 93005; 93010; 96374; 99283; 99285; J1940

== ENCOUNTER 2019-05-20 11:46 | Emergency (ER) | payer MEDICARE, BC, SELFPAY ==
[2019-05-20 11:53] VITALS: BP 162/117; PULSE 75; RESP 26; TEMP 36.3; O2SAT 94; BMI 36.3
--- NOTE | 2019-05-20 11:55 | DI.RAD.S_ITS ---
PROCEDURE: XR CHEST 1V INDICATIONS: shortness of breath TECHNIQUE: One view of the chest was acquired. COMPARISON: [facility], , XR CHEST 1V, 05/10/2019, 11:55. FINDINGS: Surgical changes and devices: Cardiac defibrillator is unchanged. Lungs and pleura: There is decreased interstitial prominence which compared with the prior study dated 05/10/19. No focal airspace opacities. No pleural effusion or pneumothorax. Mediastinum: Mediastinal contours appear normal. Heart size is enlarged, as before. Bones and chest wall: No suspicious bony lesions. Overlying soft tissues appear unremarkable. IMPRESSION: Decreased interstitial prominence which compared with the prior plain film suggesting diuresis. Unchanged cardiomegaly. Dictated by: Shannan Gee M.D. on 05/20/2019 at 11:31 Approved by: Shannan Gee M.D. on 05/20/2019 at 11:32
--- NOTE | 2019-05-20 12:01 | ED_ITS ---
HPI - SOB/Dyspnea General Chief Complaint: Shortness of Breath/Dyspnea Stated Complaint: can't breathe Time Seen by Provider: 05/20/19 11:53 Source: patient Mode of arrival: Wheelchair Limitations: no limitations History of Present Illness HPI Narrative: Patient is 73-year-old male with history of congestive heart f ailure presenting with increasing shortness of breath. He has actually had increasing shortness of breath for number of weeks he was seen evaluated here on 05/10/2019, he had workup given a dose of Lasix and discharged home. He says that the breathing has continued he is more short of breath when he walks he appear short of breath when conversation he has had increasing swelling in his legs and orthopnea. He denies any chest pain. MD Complaint: shortness of breath Exacerbating factors: exertion Related Data Home Medications Medication Instructions Recorded Confirmed MULTIVITAMIN (One Daily 1 tab PO Q DAY #0 03/17/11 03/16/19 Multivitamin) lisinopril 10 mg PO QDAY #0 03/17/11 03/16/19 apixaban [Eliquis] 5 mg PO BID #0 09/15/16 03/16/19 levothyroxine [Synthroid] 125 mcg PO QAM #0 09/15/16 03/16/19 naproxen 500 mg PO QDAY #0 09/15/16 03/16/19 [PROBIOTIC] 1 tab PO QPM #0 09/06/17 03/16/19 albuterol sulfate [Ventolin HFA] 2 puff INH QDAY PRN #0 09/06/17 03/16/19 beclomethasone dipropionate [Qvar] 1 puff INH BID #0 09/06/17 03/16/19 fluticasone propionate [Flonase 1 spray INTRANASAL QDAY #0 09/06/17 03/16/19 Allergy Relief] furosemide 20 mg tablet 10 mg PO DAILY tab 01/25/18 03/16/19 metoprolol tartrate 25 mg tablet 25 mg PO ONCE tab 01/25/18 03/16/19 metoprolol succinate 50 mg PO 90 Days #90 tab 05/02/18 03/16/19 tablet,extended release 24 hr methocarbamol 500 mg tablet 500 mg PO TID 12/22/18 03/16/19 buspirone 15 mg tablet 15 mg PO BID tab 01/26/19 03/16/19 spironolactone 25 mg tablet 25 mg PO DAILY tab 01/26/19 03/16/19 levothyroxine 137 mcg tablet 137 mcg PO DAILY tab 03/16/19 03/16/19 mirabegron 50 mg tablet,extended mg PO 03/16/19 03/16/19 release 24 hr Previous Rx's Medication Instructions Recorded fluoxetine 20 mg capsule 40 mg PO QDAY #20 cap 01/26/19 hydrocodone-acetaminophen [[place]] 1 tab PO Q6H PRN #10 tab 04/03/19 furosemide [Lasix] 40 mg PO DAILY #4 tab 05/10/19 trazodone 50 mg tablet 50 mg PO HS #90 tab 05/18/19 Allergies Allergy/AdvReac Type Severity Reaction Status Date / Time No Known Drug Allergies Allergy Verified 05/20/19 11:53 Review of Systems Review of Systems ROS Unobtainable: All systems reviewed & are unremarkable except as noted in HPI and below Constitutional Constitutional: Denies chills, Denies fever(s), Denies lethargy and Denies weakness Eyes Eyes: Denies change in vision, Denies eye discharge, Denies irritation and Denie s loss of vision ENT Ears, Nose, Mouth, and Throat: Denies change in voice, Denies neck pain and Denies sore throat Cardiovascular Cardiovascular: Denies chest pain, Reports edema, Reports leg edema, Reports dyspnea, Reports dyspnea on exertion and Reports orthopnea Respiratory Respiratory: Reports as per HPI, Reports dyspnea and Reports dyspnea on exertion Genitourinary Genitourinary: Denies hematuria, Denies flank pain, Denies urinary incontinence and Denies urinary urgency Musculoskeletal Musculoskeletal: Denies neck pain Integumentary/Breasts Skin/Breast: Denies pruritus, Denies erythema, Denies rash and Denies wounds Neurologic Neurologic: Denies loss of vision and Denies weakness Patient History Medical History CHF (congestive heart failure) (Acute) Chronic atrial fibrillation (Chronic) Generalized anxiety disorder (Acute) ICD (implantable cardioverter-defibrillator) in place (Chronic) Major depressive disorder, recurrent episode, moderate (Acute) Mild neurocognitive disorder (Acute) Surgical History History of gastric bypass History of hip replacement History of tonsillectomy Presence of cardiac pacemaker Family History Sister Mental health problem Social History Smoking Status: Former smoker Smoking Status: Former smoker alcohol intake frequency: holidays/special occasions only Substance Use Type: does not use Exam Initial Vital Signs Initial Vital Signs: Vital Signs Temperature 97.3 F L 05/20/19 11:53 Pulse Rate 75 05/20/19 11:53 Respiratory Rate 26 H 05/20/19 11:53 Blood Pressure 162/117 H 05/20/19 11:53 Pulse Oximetry 94 05/20/19 11:53 GENERAL: Weak alert male appears in mild respiratory distress HEENT: Head atraumatic,EOMI, pupils reactive, CARDIOVASCULAR: Regular rate and rhythm without murmurs, rubs or gallops. RESPIRATORY: No tachypnea no respiratory distress conversational dyspnea ABDOMEN: Soft, nontender. Normoactive bowel sounds all 4 quadrants. No guarding or rebound. EXTREMITIES: Normal range of motion, no clubbing or edema. Neurovascularly intact NEUROLOGICAL: Alert and oriented x4.Normal gait and speech. Cranial nerves II through XII grossly intact. SKIN: Warm, dry, no laceration, no petechiae, no rashes or lesions. Course Orders Ordered: ED Orders 05/20/19 11:55 XR chest 1V Stat EKG-12 Lead Stat Measure peak expiratory flow ONCE RT Consult Eval and Treat Now 05/20/19 12:04 B Type Natriuretic Peptide Stat Complete Blood Count AUTO DIFF Stat Comprehensive Metabolic Panel Stat Lactate (Lactic Acid) Stat Procalcitonin Stat Discontinued Medications Albuterol (Ventolin) 2.5 mg INH NOW ONE Stop: 05/20/19 12:18 Last Admin: 05/20/19 12:18 Dose: 2.5 mg Documented by: JEAN CARLOS Furosemide (Lasix) 40 mg IV NOW ONE Stop: 05/20/19 12:35 Last Admin: 05/20/19 12:53 Dose: 40 mg Documented by: JOSEPH Valladares Consultation #1: Dr. vidal, agrees with outpatient follow-up have him call office 1st thing in the morning can likely get in tomorrow for following day Time: 13:59 Vital Signs Vital signs: Vital Signs - 8 hr 05/20/19 11:53 05/20/19 12:18 05/20/19 12:49 Temperature 97.3 F L Pulse Rate 75 70 Respiratory Rate 26 H 21 Blood Pressure 162/117 H Blood Pressure [Right Arm] 186/118 H Pulse Oximetry 94 96 95 05/20/19 13:42 05/20/19 14:27 Temperature Pulse Rate 66 78 Respiratory Rate 17 18 Blood Pressure Blood Pressure [Right Arm] 175/131 H 173/118 H Pulse Oximetry 96 95 MDM - SOB/Dyspnea Lab Data Attestation: I reviewed the patient's lab results. Result diagrams: 05/20/19 12:04 05/20/19 12:04 Labs: Lab Results 05/20/19 05/20/19 05/20/19 Range/Units 12:04 12:04 12:04 WBC 6.2 (4.5-11.0) X10^3/uL RBC 4.65 (4.5-5.9) X10^6/uL Hgb 14.2 (13.5-17.5) g/dL Hct 42.1 (41-53) % MCV 90.5 (80-100) fL MCH 30.5 (26-34) PG MCHC 33.6 (30-36) % RDW 14.0 (11.6-14.8) % Plt Count 205 (150-400) X10^3/uL Neut % (Auto) 75.6 H (50-75) % Lymph % (Auto) 12.0 L (25-40) % [place] % (Auto) 10.3 (3-14) % Eos % (Auto) 0.7 L (2-4) % Baso % (Auto) 1.4 (0-2) % Neut # (Auto) 4700 (6434-7638) /uL Lymph # (Auto) 700 L (5857-9545) /uL [place] # (Auto) 600 (0-900) /uL Eos # (Auto) 0 (0-450) /uL Baso # (Auto) 100 (0-100) /uL Sodium 136 L (137-145) mmol/L Potassium 4.9 (3.4-5.1) mmol/L Chloride 103 (98-107) mmol/L Carbon Dioxide 26 (22-32) mmol/L BUN 14 (9-20) mg/dL Creatinine 0.80 (0.66-1.25) mg/dL Estimated GFR > 60.0 (>60) mL/min BUN/Creatinine Ratio 17.5 (6-22) Glucose 125 H (80-110) mg/dL Lactate 1.1 (0.7-2.1) mmol/L Calcium 9.4 (8.4-10.2) mg/dL Total Bilirubin 1.2 (0.2-1.3) mg/dL AST 38 (17-59) IU/L ALT 28 (<50) IU/L Alkaline Phosphatase 55 (38-126) U/L B-Natriuretic Peptide (<100) Total Protein 6.9 (6.3-8.2) g/dL Albumin 4.3 (3.5-5.0) g/dL Globulin 2.6 (1.7-4.1) g/dL Albumin/Globulin Ratio 1.7 (1.0-2.8) Procalcitonin (<0.5) ng/mL 05/20/19 05/20/19 Range/Units 12:04 12:04 WBC (4.5-11.0) X10^3/uL RBC (4.5-5.9) X10^6/uL Hgb (13.5-17.5) g/dL Hct (41-53) % MCV (80-100) fL MCH (26-34) PG MCHC (30-36) % RDW (11.6-14.8) % Plt Count (150-400) X10^3/uL Neut % (Auto) (50-75) % Lymph % (Auto) (25-40) % [place] % (Auto) (3-14) % Eos % (Auto) (2-4) % Baso % (Auto) (0-2) % Neut # (Auto) (1477-5934) /uL Lymph # (Auto) (0576-8063) /uL [place] # (Auto) (0-900) /uL Eos # (Auto) (0-450) /uL Baso # (Auto) (0-100) /uL Sodium (137-145) mmol/L Potassium (3.4-5.1) mmol/L Chloride (98-107) mmol/L Carbon Dioxide (22-32) mmol/L BUN (9-20) mg/dL Creatinine (0.66-1.25) mg/dL Estimated GFR (>60) mL/min BUN/Creatinine Ratio (6-22) Glucose (80-110) mg/dL Lactate (0.7-2.1) mmol/L Calcium (8.4-10.2) mg/dL Total Bilirubin (0.2-1.3) mg/dL AST (17-59) IU/L ALT (<50) IU/L Alkaline Phosphatase (38-126) U/L B-Natriuretic Peptide 792 H (<100) Total Protein (6.3-8.2) g/dL Albumin (3.5-5.0) g/dL Globulin (1.7-4.1) g/dL Albumin/Globulin Ratio (1.0-2.8) Procalcitonin < 0.05 (<0.5) ng/mL Imaging Data Chest x-ray: Radiologist's impression: PROCEDURE: XR CHEST 1V INDICATIONS: shortness of breath TECHNIQUE: One view of the chest was acquired. COMPARISON: [facility], , XR CHEST 1V, 05/10/2019, 11:55. FINDINGS: Surgical changes and devices: Cardiac defibrillator is unchanged. Lungs and pleura: There is decreased interstitial prominence which compared with the prior study dated 05/10/19. No focal airspace opacities. No pleural effusion or pneumothorax. Mediastinum: Mediastinal contours appear normal. Heart size is enlarged, as before. Bones and chest wall: No suspicious bony lesions. Overlying soft tissues appear unremarkable. IMPRESSION: Decreased interstitial prominence which compared with the prior plain film suggesting diuresis. Unchanged cardiomegaly. Dictated by: Shannan Gee M.D. on 05/20/2019 at 11:31 Approved by: Shannan Gee M.D. on 05/20/2019 at 11:32 ECG Data Attestation: I personally reviewed and interpreted this ECG as follows: Prior ECG tracings: available for review Interpretation: Paced rhythm rate [address] changes similar to prior EKGs MDM Narrative Medical decision making narrative: The patient's breathing has overall improved after 40 of Lasix in the emergency department. His an ambulation trial his oxygen level stayed over 90%. He would prefer to go home. He does have more elevated BNP today than he has previously however his x-ray appears clear than lung sounds do appear clear as well. He has a history of CHF. His framing consultant Dr. Gilmore ordered echocardiogram an EKG for this week but he has not yet seen his PCP. I've stressed to him that he needs to call Dr. Jensen 1st thing in the morning and set up an appointment. Discharge Plan Departure Patient Disposition: Home Clinical Impression: Congestive heart failure Qualifiers: Heart failure type: unspecified Heart failure chronicity: unspecified Qualified Code(s): I50.9 - Heart failure, unspecified Discharge Date/Time: 05/20/19 14:35 Instructions: DI for Heart Failure Activity Restrictions/Additional Instructions: *You have been diagnosed with congestive heart failure *What to do: You need to call your PCP tomorrow *Continue to take medications as directed Furosemide 20 mg twice a day 1st thing in the morning and then in the afternoon for the next 4 *Follow up with Dr. Jensen this week call 1st thing tomorrow morning *Return to ER if you should have increasing shortness of breath chest or any new, worsening or concerning symptoms Prescriptions: No Action metoprolol tartrate 25 mg tablet 25 mg PO ONCE RF: 0 furosemide 20 mg tablet 10 mg PO DAILY RF: 0 spironolactone 25 mg tablet 25 mg PO DAILY RF: 0 metoprolol succinate 50 mg tablet extended release 24 hr PO 90 Days Qty: 90 RF: 0 methocarbamol 500 mg tablet 500 mg PO TID RF: 0 Myrbetriq 50 mg tablet extended release 24 hr PO RF: 0 levothyroxine 137 mcg tablet 137 mcg PO DAILY RF: 0 buspirone 15 mg tablet 15 mg PO BID RF: 0 lisinopril 10 MG tablet 10 mg PO QDAY Qty: 0 RF: 0 MULTIVITAMIN (One Daily Multivitamin) 1 tab PO Q DAY Qty: 0 RF: 0 levothyroxine [Synthroid] 125 MCG tablet 125 mcg PO QAM Qty: 0 RF: 0 naproxen 500 MG tablet 500 mg PO QDAY Qty: 0 RF: 0 apixaban [Eliquis] 5 MG tablet 5 mg PO BID Qty: 0 RF: 0 beclomethasone dipropionate [Qvar] 80 MCG/PUFF aerosol 1 puff INH BID Qty: 0 RF: 0 albuterol sulfate [Ventolin HFA] 90 MCG/PUFF HFA aerosol inhaler 2 puff INH QDAY PRNQty: 0 RF: 0 [PROBIOTIC] 1 tab PO QPM Qty: 0 RF: 0 fluticasone propionate [Flonase Allergy Relief] 9.9 ML spray,suspension 1 spray Intranasal QDAY Qty: 0 RF: 0 fluoxetine 20 mg capsule 40 mg PO QDAY Qty: 20 RF: 1 trazodone 50 mg tablet 50 mg PO HS Qty: 90 RF: 3 hydrocodone-acetaminophen [[place]] 5-325 mg tablet 1 tab PO Q6H PRN (Reason: pain) Qty: 10 RF: 0 furosemide [Lasix] 40 mg tablet 40 mg PO DAILY Qty: 4 RF: 0 Referrals: Matheus Jensen MD [Primary Care Provider] -
[2019-05-20 12:08] LABS: Add Manual Diff / Slide Review NO; Basophils Absolute Auto 100 /uL (0-100); Basophils Percent Auto 1.4 % (0-2); Eosinophils Absolute Auto 0 /uL (0-450); Eosinophils Percent Auto 0.7 % (2-4); Hematocrit 42.1 % (41-53); Hemoglobin 14.2 g/dL (13.5-17.5); Lymphocytes Absolute Auto 700 /uL (1100-4500); Mean Corpuscular HGB Conc 33.6 % (30-36); Mean Corpuscular Hemoglobin 30.5 PG (26-34); Mean Corpuscular Volume 90.5 fL (80-100); Monocytes Absolute Auto 600 /uL (0-900); Monocytes Percent Auto 10.3 % (3-14); Neutrophils Absolute Auto 4700 /uL (1500-7000); Neutrophils Percent Auto 75.6 % (50-75); Platelet Count 205 X10^3/uL (150-400); Red Blood Cell Count 4.65 X10^6/uL (4.5-5.9); White Blood Cell Count 6.2 X10^3/uL (4.5-11.0)
[2019-05-20 12:18] VITALS: O2SAT 96
[2019-05-20] MEDS: ALBUTEROL 2.5 MG/3 ML NEB (ADULT) INH (12:18)
[2019-05-20 12:20] LABS: Lactate (Lactic Acid) 1.1 mmol/L (0.7-2.1)
[2019-05-20 12:21] LABS: Alanine Aminotransferase 28 IU/L (<50); Albumin 4.3 g/dL (3.5-5.0); Albumin Globulin Ratio 1.7 (1.0-2.8); Alkaline Phosphatase 55 U/L (38-126); Aspartate Aminotransferase 38 IU/L (17-59); BUN Creatinine Ratio 17.5 (6-22); Bilirubin Total 1.2 mg/dL (0.2-1.3); Blood Urea Nitrogen 14 mg/dL (9-20); Calcium 9.4 mg/dL (8.4-10.2); Carbon Dioxide 26 mmol/L (22-32); Chloride 103 mmol/L (98-107); Estimated Glomerular Filt Rate > 60.0 mL/min (>60); Globulin 2.6 g/dL (1.7-4.1); Glucose 125 mg/dL (80-110); HEMOLYSIS 86 (0-50); Sodium 136 mmol/L (137-145); Total Protein 6.9 g/dL (6.3-8.2)
[2019-05-20 12:23] LABS: Potassium 4.9 mmol/L (3.4-5.1)
[2019-05-20 12:49] VITALS: BP 186/118; PULSE 70; RESP 21; O2SAT 95
[2019-05-20] MEDS: FUROSEMIDE 40 MG/4 ML VIAL IV (12:53)
[2019-05-20 13:13] LABS: B Type Natriuretic Peptide 792 (<100)
[2019-05-20 13:15] LABS: Procalcitonin < 0.05 ng/mL (<0.5)
[2019-05-20 13:42] VITALS: BP 175/131; PULSE 66; RESP 17; O2SAT 96
--- NOTE | 2019-05-20 14:26 | PC.NURSE ---
Walked patient around the hallway while monitoring oxygen saturation.
[2019-05-20 14:27] VITALS: BP 173/118; PULSE 78; RESP 18; O2SAT 95
== END 2019-05-20 14:35 | disposition home or self-care (01) ==
PROVIDERS: Emergency Provider Emergency Medicine; PCP Family Medicine
DX: I50.9 Heart failure, unspecified (principal)
CPT/HCPCS: 36415; 71045; 80053; 83605; 83880; 84145; 85025; 93005; 94640; 96374; 99284; 99285; J1940; J7613

== ENCOUNTER → 2019-06-18 10:41 | Outpatient (CLI) | payer MEDICARE, BC, SELFPAY ==
--- NOTE | 2019-06-18 | DI.RAD.S_ITS ---
PROCEDURE: XR HIP W PEL IF DONE RT 2V INDICATIONS: RIGHT HIP PAIN POST FALL TECHNIQUE: AP pelvis with lateral view(s) of the right hip(s). COMPARISON: [facility], CR, XR HIP W PEL IF DONE RT 2V, 04/03/2019, 14:38. FINDINGS: Bones: No acute fractures or dislocations. Postoperative changes of bilateral hip arthroplasties are again noted, in addition to a fixation screw beneath the inferior tip of the right arthroplasty. Pelvic ring appears intact. No suspicious bony lesions. Soft tissues: The visualized bowel gas pattern is normal. No suspicious soft tissue calcifications. IMPRESSION: Prior bilateral hip arthroplasty procedures, no acute disease. No recent trauma found. Dictated by: Juan David Allison M.D. on 06/18/2019 at 12:51 Approved by: Juan David Allison M.D. on 06/18/2019 at 12:53
== END ==
PROVIDERS: PCP Family Medicine; Visit Provider Family Medicine
DX: M25.551 Pain in right hip (principal); Z96.643 Presence of artificial hip joint, bilateral
CPT/HCPCS: 73502

== ENCOUNTER → 2020-02-12 10:28 | Outpatient (CLI) | payer MEDICARE, BC, SELFPAY ==
[2020-02-12 11:34] LABS: Add Manual Diff / Slide Review NO; Basophils Absolute Auto 100 /uL (0-100); Basophils Percent Auto 0.9 % (0-2); Eosinophils Absolute Auto 100 /uL (0-450); Hemoglobin 13.6 g/dL (13.5-17.5); Lymphocytes Absolute Auto 700 /uL (1100-4500); Lymphocytes Percent Auto 8.7 % (25-40); Mean Corpuscular HGB Conc 33.3 % (30-36); Mean Corpuscular Hemoglobin 30.9 PG (26-34); Mean Corpuscular Volume 92.7 fL (80-100); Monocytes Absolute Auto 500 /uL (0-900); Monocytes Percent Auto 5.4 % (3-14); Neutrophils Absolute Auto 7000 /uL (1500-7000); Platelet Count 234 X10^3/uL (150-400); Red Blood Cell Count 4.42 X10^6/uL (4.5-5.9); Red Cell Distribution Width 13.2 % (11.6-14.8); White Blood Cell Count 8.4 X10^3/uL (4.5-11.0)
[2020-02-12 11:55] LABS: BUN Creatinine Ratio 23.2 (6-22); Blood Urea Nitrogen 19 mg/dL (9-20); Calcium 9.4 mg/dL (8.4-10.2); Carbon Dioxide 29 mmol/L (22-32); Chloride 103 mmol/L (98-107); Estimated Glomerular Filt Rate > 60.0 mL/min (>60); Glucose 151 mg/dL (80-110); HEMOLYSIS < 15 (0-50); Potassium 4.4 mmol/L (3.4-5.1); Sodium 139 mmol/L (137-145)
== END ==
PROVIDERS: PCP Family Medicine; Referring Provider Nurse Practitioner; Visit Provider Nurse Practitioner
DX: I42.0 Dilated cardiomyopathy (principal)
CPT/HCPCS: 36415; 80048; 83735; 85025

== ENCOUNTER 2020-02-25 09:42 | Emergency (ER) | payer MEDICARE, BC, SELFPAY ==
[2020-02-25] VITALS (7 sets, daily range): BP systolic 127–134; BP diastolic 77–93; PULSE 69–73; RESP 22–37; TEMP 36.7; O2SAT 94–97
--- NOTE | 2020-02-25 09:58 | DI.RAD.S_ITS ---
PROCEDURE: XR CHEST 1V INDICATIONS: sob TECHNIQUE: One view of the chest was acquired. COMPARISON: [facility], CR, XR CHEST 1V, 05/20/2019, 12:05. [facility], CR, XR CHEST 1V, 05/10/2019, 11:55. FINDINGS: Surgical changes and devices: Stable over time, pacemaker. Lungs and pleura: Lungs are slightly improved, minimal residual pulmonary edema. No pleural effusions or pneumothorax. Mediastinum: Mediastinal contours appear normal. Heart size is globally enlarged, as has been previously the case. Bones and chest wall: No suspicious bony lesions. Overlying soft tissues appear unremarkable. IMPRESSION: Improved pulmonary edema pattern with reference to prior studies from April of last year. Slight edema appears present within the lungs currently. Chronic cardiomegaly. Dictated by: Juan David Allison M.D. on 02/25/2020 at 10:12 Approved by: Juan David Allison M.D. on 02/25/2020 at 10:18
[2020-02-25 10:05] LABS: Add Manual Diff / Slide Review NO; Basophils Absolute Auto 100 /uL (0-100); Basophils Percent Auto 1.3 % (0-2); Eosinophils Absolute Auto 0 /uL (0-450); Eosinophils Percent Auto 0.7 % (2-4); Hematocrit 42.5 % (41-53); Hemoglobin 14.3 g/dL (13.5-17.5); Lymphocytes Absolute Auto 1100 /uL (1100-4500); Mean Corpuscular HGB Conc 33.6 % (30-36); Mean Corpuscular Hemoglobin 30.8 PG (26-34); Mean Corpuscular Volume 91.7 fL (80-100); Monocytes Absolute Auto 500 /uL (0-900); Monocytes Percent Auto 7.8 % (3-14); Neutrophils Absolute Auto 4700 /uL (1500-7000); Neutrophils Percent Auto 73.2 % (50-75); Platelet Count 247 X10^3/uL (150-400); Red Blood Cell Count 4.63 X10^6/uL (4.5-5.9); Red Cell Distribution Width 13.2 % (11.6-14.8); White Blood Cell Count 6.4 X10^3/uL (4.5-11.0)
[2020-02-25 10:09] LABS: INR 1.4 (0.9-1.3); Prothrombin Time 15.6 SECONDS (10.1-12.7)
[2020-02-25 10:12] LABS: PTT Partial Thromboplastin Tim 28 SECONDS (26.4-36.2)
--- NOTE | 2020-02-25 10:12 | ED_ITS ---
HPI - SOB/Dyspnea General Chief Complaint: Shortness of Breath/Dyspnea Stated Complaint: FLUID RETENTION, PER [facility] Time Seen by Provider: 02/25/20 09:57 Source: patient Mode of arrival: Wheelchair Limitations: no limitations History of Present Illness HPI Narrative: 74-year-old male history of congestive heart failure presenting at the request of his physician for increasing shortness of breath. He says for the last week he is unable to walk short distances without panting and having severe shortness of breath. He is on Lasix, but unsure of his dose. He has noticed that his weight has gone up but denies any swelling in his abdomen or legs. He denies any orthopnea. He has no chest pain or heart palpitations. He has not had any fever cough or infectious symptoms. MD Complaint: shortness of breath Severity: moderate Relieving factors: rest Exacerbating factors: lying flat and exertion Related Data Home Medications Medication Instructions Recorded Confirmed apixaban [Eliquis] 5 mg PO BID #0 09/15/16 10/31/19 albuterol sulfate [Ventolin HFA] 2 puff INH QDAY PRN #0 09/06/17 10/31/19 beclomethasone dipropionate [Qvar] 1 puff INH BID #0 09/06/17 10/31/19 fluticasone propionate [Flonase 1 spray INTRANASAL QDAY #0 09/06/17 10/31/19 Allergy Relief] methocarbamol 500 mg tablet 500 mg PO TID 12/22/18 10/31/19 levothyroxine 137 mcg tablet 137 mcg PO DAILY tab 03/16/19 10/31/19 mirabegron 50 mg tablet,extended mg PO 03/16/19 10/31/19 release 24 hr lisinopril 10 mg tablet 10 mg PO BID #0 tab 08/31/19 10/31/19 meclizine 12.5 mg tablet 12.5 mg PO DAILY 08/31/19 10/31/19 melatonin 5 mg capsule mg PO BEDTIME cap 08/31/19 10/31/19 metoprolol succinate 50 mg 25 mg PO 90 Days tab 08/31/19 10/31/19 tablet,extended release 24 hr rosuvastatin 20 mg tablet 20 mg PO DAILY 08/31/19 10/31/19 spironolactone 25 mg tablet 12.5 mg PO QAM tab 08/31/19 10/31/19 tamsulosin 0.4 mg capsule 0.4 mg PO BEDTIME 08/31/19 10/31/19 Previous Rx's Medication Instructions Recorded hydrocodone-acetaminophen [Jackson] 1 tab PO Q6H PRN #10 tab 04/03/19 furosemide [Lasix] 40 mg PO DAILY #4 tab 05/10/19 mirtazapine 30 mg tablet 30 mg PO BEDTIME #90 tab 10/08/19 fluoxetine 40 mg capsule 40 mg PO DAILY #90 cap 02/11/20 trazodone 50 mg tablet 50 mg PO HS #90 tab 02/11/20 Allergies Allergy/AdvReac Type Severity Reaction Status Date / Time No Known Drug Allergies Allergy Verified 02/25/20 10:03 Review of Systems Review of Systems Narrative: GENERAL: Denies chills, fatigue, malaise, fever, sweats, travel HEENT: Denies sinus pain, ear pain, sore throat, difficulty swallowing, neck pain RESPIRATORY: see HPI CARDIOVASCULAR: Denies chest pain, palpitations, orthopnea, edema GASTROINTESTINAL: Denies nausea, vomiting, abdominal pain, diarrhea, cons tipation, melena. : Denies dysuria, frequency, incontinence, hematuria, urinary retention, flank pain. MUSCULOSKELETAL: Denies weakness, joint pain, or bony pain SKIN: No rash, no erythema, no pruritus NEUROLOGIC: Denies weakness, dizziness, headache, numbness, change in speech, confusion PSYCHIATRIC: No concerning psychosocial issues. 12 point review of systems is negative except for those stated above and HPI Patient History Medical History CHF (congestive heart failure) (Acute) Chronic atrial fibrillation (Chronic) Generalized anxiety disorder (Acute) ICD (implantable cardioverter-defibrillator) in place (Chronic) Major depressive disorder, recurrent episode, moderate (Acute) Mild neurocognitive disorder (Acute) Surgical History History of gastric bypass History of hip replacement History of tonsillectomy Presence of cardiac pacemaker Family History Sister Mental health problem Social History Smoking Status: Former smoker Smoking Status: Former smoker alcohol intake frequency: holidays/special occasions only Substance Use Type: does not use Exam Initial Vital Signs Initial Vital Signs: Vital Signs Temperature 98.1 F 02/25/20 09:45 Pulse Rate 71 02/25/20 09:45 Respiratory Rate 28 H 02/25/20 09:45 Blood Pressure 131/77 02/25/20 09:45 Pulse Oximetry 95 02/25/20 09:45 GENERAL: Pleasant alert well-appearing elderly and in no acute distress. HEENT: Head atraumatic,EOMI, pupils reactive, face symmetric, moist mucous membranes CARDIOVASCULAR: Regular rate and rhythm without murmurs, rubs or gallops. RESPIRATORY: Breath sounds equal bilaterally, no wheezes rales or rhonchi. Noted conversational dyspnea ABDOMEN: Soft, nontender. Normoactive bowel sounds all 4 quadrants. No guarding or rebound. EXTREMITIES: Normal range of motion, no clubbing or edema. Neurovascularly intact NEUROLOGICAL: Alert and oriented x4.Normal gait and speech. Cranial nerves II through XII grossly intact. SKIN: Warm, dry, no laceration, no petechiae, no rashes or lesions. Course Orders Ordered: ED Orders 02/25/20 09:52 Complete Blood Count AUTO DIFF Stat Comprehensive Metabolic Panel Stat Magnesium Stat NT-proBNP (BNP-Adult 18+) Stat Partial Thromboplastin Time Stat Prothrombin Time INR Stat Troponin & CK Cardiac Panel Stat 02/25/20 09:57 Consult to Respiratory Therapy Evaluate & Treat EKG-12 Lead Stat 02/25/20 09:58 XR chest 1V Stat Discontinued Medications Furosemide (Lasix) 40 mg IV NOW ONE Stop: 02/25/20 09:58 Last Admin: 02/25/20 10:15 Dose: 40 mg Documented by: JOSEPH Vital Signs Vital signs: Vital Signs - 8 hr 02/25/20 09:45 02/25/20 10:20 02/25/20 10:30 Temperature 98.1 F Pulse Rate 71 69 71 Respiratory Rate 28 H 23 25 H Blood Pressure 131/77 Pulse Oximetry 95 96 97 02/25/20 10:45 02/25/20 11:00 02/25/20 11:15 Temperature Pulse Rate 73 69 69 Respiratory Rate 37 H 22 24 Blood Pressure 134/91 H 127/82 134/89 Pulse Oximetry 95 94 95 02/25/20 11:30 Temperature Pulse Rate 72 Respiratory Rate 28 H Blood Pressure 132/93 H Pulse Oximetry 94 MDM - SOB/Dyspnea Lab Data Attestation: I reviewed the patient's lab results. Result diagrams: 02/25/20 09:52 02/25/20 09:52 Labs: Lab Results 02/25/20 02/25/20 02/25/20 Range/Units 09:52 09:52 09:52 WBC 6.4 (4.5-11.0) X10^3/uL RBC 4.63 (4.5-5.9) X10^6/uL Hgb 14.3 (13.5-17.5) g/dL Hct 42.5 (41-53) % MCV 91.7 (80-100) fL MCH 30.8 (26-34) PG MCHC 33.6 (30-36) % RDW 13.2 (11.6-14.8) % Plt Count 247 (150-400) X10^3/uL Neut % (Auto) 73.2 (50-75) % Lymph % (Auto) 17.0 L (25-40) % Mckean % (Auto) 7.8 (3-14) % Eos % (Auto) 0.7 L (2-4) % Baso % (Auto) 1.3 (0-2) % Neut # (Auto) 4700 (3966-1651) /uL Lymph # (Auto) 1100 (9947-9720) /uL Mckean # (Auto) 500 (0-900) /uL Eos # (Auto) 0 (0-450) /uL Baso # (Auto) 100 (0-100) /uL PT 15.6 H (10.1-12.7) SECONDS INR 1.4 H (0.9-1.3) APTT 28 D (26.4-36.2) SECONDS Sodium 138 (137-145) mmol/L Potassium 4.4 (3.4-5.1) mmol/L Chloride 103 (98-107) mmol/L Carbon Dioxide 27 (22-32) mmol/L BUN 19 (9-20) mg/dL Creatinine 0.74 (0.66-1.25) mg/dL Estimated GFR > 60.0 (>60) mL/min BUN/Creatinine Ratio 25.7 H (6-22) Glucose 152 H (80-110) mg/dL Calcium 9.6 (8.4-10.2) mg/dL Magnesium 2.0 (1.6-2.3) mg/dL Total Bilirubin 0.7 (0.2-1.3) mg/dL AST 31 (17-59) IU/L ALT 22 (<50) IU/L Alkaline Phosphatase 60 (38-126) U/L Total Creatine Kinase 87 (55-170) U/L CK-MB (CK-2) TNP CK-MB (CK-2) Rel Index TNP Troponin I 0.030 (0.01-0.034) ng/mL NT-Pro-B Natriuret Pep 2270 H (<450) pg/mL Total Protein 6.8 (6.3-8.2) g/dL Albumin 4.1 (3.5-5.0) g/dL Globulin 2.7 (1.7-4.1) g/dL Albumin/Globulin Ratio 1.5 (1.0-2.8) Urine Dip Bedside Urine Glucose Negative Bedside Urine Bilirubin - Negative Bedside Urine Ketone - Negative Urine Specific [place] 1.015 Bedside Urine Occult Blood - Negative Bedside Urine pH 6.0 Bedside Urine Protein - Negative Bedside Urine Urobilinogen - Negative Bedside Urine Nitrite - Negative Bedside Urine Leukocytes - Negative Esterase Imaging Data Chest x-ray: Radiologist's Impression: OCEDURE: XR CHEST 1V INDICATIONS: sob TECHNIQUE: One view of the chest was acquired. COMPARISON: [facility], , XR CHEST 1V, 05/20/2019, 12:05. [facility], CR, XR CHEST 1V, 05/10/2019, 11:55. FINDINGS: Surgical changes and devices: Stable over time, pacemaker. Lungs and pleura: Lungs are slightly improved, minimal residual pulmonary edema . No pleural effusions or pneumothorax. Mediastinum: Mediastinal contours appear normal. Heart size is globally enlarged, as has been previously the case. Bones and chest wall: No suspicious bony lesions. Overlying soft tissues appear unremarkable. IMPRESSION: Improved pulmonary edema pattern with reference to prior studies from April of last year. Slight edema appears present within the lungs currently. Chronic cardiomegaly. Dictated by: Juan David Allison M.D. on 02/25/2020 at 10:12 ECG Data Attestation: I personally reviewed and interpreted this ECG as follows: Prior ECG tracings: available for review Interpretation: A paced rhythm rate [address] changes similar to previous EKGs MDM Narrative Medical decision making narrative: Patient is feeling better after Lasix he has urinated a couple of times. He does not want to be admitted he is trying to take care of his . This time he is not hypoxic is. Will increase his Lasix to twice daily for the next few days and have him follow-up with his PCP. He denies any chest pain. Discharge Plan Departure Patient Disposition: Home Clinical Impression: Congestive heart disease Qualifiers: Heart failure type: other Qualified Code(s): I50.9 - Heart failure, unspecified Discharge Date/Time: 02/25/20 11:43 Instructions: DI for Heart Failure Activity Restrictions/Additional Instructions: *You have been diagnosed with congestive heart failure *What to do: Increase furosemide to 40 mg twice a day for the next 3 days. Please call your primary care provider's office and schedule a follow-up. *Continue to take medications as directed See above instructions for new recommendation *Follow up with your primary care provider in 2-3 days *Return to ER if you should have increasing shortness of breath, fever, chest pain, passing or any new, worsening or concerning symptoms Prescriptions: No Action spironolactone 25 mg tablet 12.5 mg PO QAM RF: 0 metoprolol succinate 50 mg tablet extended release 24 hr 25 mg PO 90 Days RF: 0 methocarbamol 500 mg tablet 500 mg PO TID RF: 0 Myrbetriq 50 mg tablet extended release 24 hr PO RF: 0 levothyroxine 137 mcg tablet 137 mcg PO DAILY RF: 0 meclizine 12.5 mg tablet 12.5 mg PO DAILY RF: 0 rosuvastatin 20 mg tablet 20 mg PO DAILY RF: 0 tamsulosin 0.4 mg capsule 0.4 mg PO BEDTIME RF: 0 melatonin 5 mg capsule PO BEDTIME RF: 0 apixaban [Eliquis] 5 MG tablet 5 mg PO BID Qty: 0 RF: 0 beclomethasone dipropionate [Qvar] 80 MCG/PUFF aerosol 1 puff INH BID Qty: 0 RF: 0 albuterol sulfate [Ventolin HFA] 90 MCG/PUFF HFA aerosol inhaler 2 puff INH QDAY PRNQty: 0 RF: 0 fluticasone propionate [Flonase Allergy Relief] 9.9 ML spray,suspension 1 spray Intranasal QDAY Qty: 0 RF: 0 lisinopril 10 mg tablet 10 mg PO BID Qty: 0 RF: 0 mirtazapine 30 mg tablet 30 mg PO BEDTIME Qty: 90 RF: 1 fluoxetine 40 mg capsule 40 mg PO DAILY Qty: 90 RF: 0 trazodone 50 mg tablet 50 mg PO HS Qty: 90 RF: 3 hydrocodone-acetaminophen [Jackson] 5-325 mg tablet 1 tab PO Q6H PRN (Reason: pain) Qty: 10 RF: 0 furosemide [Lasix] 40 mg tablet 40 mg PO DAILY Qty: 4 RF: 0 Referrals: Matheus Jensen MD [Primary Care Provider] -
[2020-02-25 10:14] LABS: Alanine Aminotransferase 22 IU/L (<50); Albumin 4.1 g/dL (3.5-5.0); Albumin Globulin Ratio 1.5 (1.0-2.8); Alkaline Phosphatase 60 U/L (38-126); Aspartate Aminotransferase 31 IU/L (17-59); BUN Creatinine Ratio 25.7 (6-22); Bilirubin Total 0.7 mg/dL (0.2-1.3); Blood Urea Nitrogen 19 mg/dL (9-20); Calcium 9.6 mg/dL (8.4-10.2); Carbon Dioxide 27 mmol/L (22-32); Chloride 103 mmol/L (98-107); Creatine Kinase 87 U/L (55-170); Estimated Glomerular Filt Rate > 60.0 mL/min (>60); Globulin 2.7 g/dL (1.7-4.1); Glucose 152 mg/dL (80-110); HEMOLYSIS 49 (0-50); Potassium 4.4 mmol/L (3.4-5.1); Sodium 138 mmol/L (137-145); Total Protein 6.8 g/dL (6.3-8.2)
[2020-02-25] MEDS: FUROSEMIDE 40 MG/4 ML VIAL IV (10:15)
[2020-02-25 10:26] LABS: NT-proBNP (BNP-Adult 18+) 2270 pg/mL (<450)
== END 2020-02-25 11:43 | disposition home or self-care (01) ==
PROVIDERS: Emergency Provider Emergency Medicine; PCP Family Medicine
DX: I50.9 Heart failure, unspecified (principal)
CPT/HCPCS: 36415; 71045; 80053; 81003; 82550; 83735; 83880; 84484; 85025; 85610; 85730; 93005; 96374; 99284; J1940

== ENCOUNTER → 2020-09-24 13:05 | Outpatient (CLI) | payer MEDICARE, BC, SELFPAY ==
--- NOTE | 2020-09-25 16:11 | PM.PFT.1 ---
Pulmonary Function Test Referral & Results Date Patient Seen: 09/24/20 Requesting provider: Danie Randhawa Results: The spirometry demonstrates an FVC of 2.50 L which is 55% of predicted. The FEV1 was measured at 1.96 L which is 60% of predicted. The FEV1/FVC ratio was 78 which is 108% of predicted. No bronchodilator was administered Lung volumes show an SVC of 2.84 L which is 59% of predicted. The diffusing capacity was measured at 31.14 which is 88% of predicted. The maximum voluntary ventilation was reduced Interpretation: This study demonstrates moderate obstructive lung disease based on reduction FEV1 although FEV1/FVC ratio is preserved, shape a flow volume loop does support some element of obstructive lung disease being present There is a more severe reduction in SVC suggesting more significant restrictive lung disease There may be a mild reduction in diffusing capacity although patient apparently had difficulty performing this test, thus making it sensitivity somewhat limited Compared to PFTs performed in December 2014, current FEV1 is diminished compared to previous, was 2.34 L currently 1.96 L, and more significantly SVC was previously 3.42 L currently 2.84 L Clinical correlation suggested
== END ==
PROVIDERS: PCP Family Medicine; Referring Provider Family Medicine; Visit Provider Family Medicine
DX: J45.20 Mild intermittent asthma, uncomplicated (principal); Z20.822 Contact with and (suspected) exposure to COVID-19
CPT/HCPCS: 87635; 94060; 94729; C9803

== ENCOUNTER → 2020-09-24 13:18 | Outpatient (CLI) | payer MEDICARE, BC, SELFPAY ==
[2020-09-24 14:09] LABS: COVID19 -Nasal RAPID Negative (Negative)
== END ==
PROVIDERS: PCP Family Medicine; Referring Provider Family Medicine; Visit Provider Internal Medicine
DX: Z20.822 Contact with and (suspected) exposure to COVID-19 (principal)
CPT/HCPCS: 87635; C9803

== ENCOUNTER 2020-10-06 11:17 | Emergency (ER) | payer MEDICARE, BC, SELFPAY ==
[2020-10-06] VITALS (11 sets, daily range): BP systolic 146–185; BP diastolic 69–95; PULSE 70–114; RESP 18–26; TEMP 36.4; O2SAT 94–97; BMI 23.7
--- NOTE | 2020-10-06 11:24 | ED_ITS ---
HPI - Back Pain/Injury General Chief Complaint: Back Pain/Injury Stated Complaint: 'back is out' for couple weeks, doctor sent Time Seen by Provider: 10/06/20 11:22 Source: patient Mode of arrival: Ambulatory Limitations: no limitations History of Present Illness HPI Narrative: 75-year-old male former smoker with history of congestive heart failure, chronic AFib on Eliquis, PTSD, generalized anxiety disorder presents with a chief complaint of a few weeks of lower back pain of breath. He states the back pain is been present for quite some time, at least the past few weeks. His pain is worse with ambulation and improves with rest. He states it is sharp and stabbing. He denies any numbness, tingling or weakness. He denies any loss of control of bowel or bladder. He denies any lower extremity weakness. Furthermore the patient admits to some shortness of breath which seems worse with exertion and lying flat. He denies any fever or chills. He has had some minimal cough. He denies any chest pain MD Complaint: back pain and fall Onset (ago): week(s) Duration: constant Similar Symptoms Previously: No Location: lumbar spine Severity: moderate Quality: aching Radiation: none Relieving factors: other Exacerbating factors: movement Associated symptoms: other Related Data Home Medications Medication Instructions Recorded Confirmed apixaban [Eliquis] 5 mg PO BID #0 09/15/16 06/17/20 albuterol sulfate [Ventolin HFA] 2 puff INH QDAY PRN #0 09/06/17 06/17/20 beclomethasone dipropionate [Qvar] 1 puff INH BID #0 09/06/17 06/17/20 fluticasone propionate [Flonase 1 spray INTRANASAL QDAY #0 09/06/17 06/17/20 Allergy Relief] methocarbamol 500 mg tablet 500 mg PO TID 12/22/18 06/17/20 levothyroxine 137 mcg tablet 137 mcg PO DAILY tab 03/16/19 06/17/20 mirabegron 50 mg tablet,extended mg PO 03/16/19 06/17/20 release 24 hr lisinopril 10 mg tablet 10 mg PO BID #0 tab 08/31/19 06/17/20 meclizine 12.5 mg tablet 12.5 mg PO DAILY 08/31/19 06/17/20 melatonin 5 mg capsule mg PO BEDTIME cap 08/31/19 06/17/20 metoprolol succinate 50 mg 25 mg PO 90 Days tab 08/31/19 06/17/20 tablet,extended release 24 hr rosuvastatin 20 mg tablet 20 mg PO DAILY 08/31/19 06/17/20 spironolactone 25 mg tablet 12.5 mg PO QAM tab 08/31/19 06/17/20 tamsulosin 0.4 mg capsule 0.4 mg PO BEDTIME 08/31/19 06/17/20 Previous Rx's Medication Instructions Recorded hydrocodone-acetaminophen [Magnolia] 1 tab PO Q6H PRN #10 tab 04/03/19 furosemide [Lasix] 40 mg PO DAILY #4 tab 05/10/19 trazodone 50 mg tablet 50 mg PO HS #90 tab 04/21/20 mirtazapine 30 mg tablet 30 mg PO BEDTIME #90 tab 06/17/20 gabapentin 300 mg PO BEDTIME #14 cap 10/06/20 methylprednisolone [Medrol (Gideon)] See Rx Instructions .ROUTE 10/06/20 .COMPLEX #21 ea Allergies Allergy/AdvReac Type Severity Reaction Status Date / Time No Known Drug Allergies Allergy Verified 10/06/20 11:37 Review of Systems Constitutional Constitutional: Denies chills, Denies fatigue, Denies fever(s), Denies frequent falls, Denies lethargy and Denies weakness Eyes Eyes: Denies change in vision, Denies eye discharge, Denies irritation and Denies loss of vision ENT Ears, Nose, Mouth, and Throat: Denies change in voice, Denies dizziness, Denies neck pain, Denies sore throat and Denies throat swelling Cardiovascular Cardiovascular: Denies chest pain, Denies irregular heart rhythm, Denies lightheadedness, Denies palpitations, Reports dyspnea, Reports dyspnea on exertion and Denies orthopnea Respiratory Respiratory: Denies cough, Reports dyspnea, Reports dyspnea on exertion and Denies wheezing Gastrointestinal Gastrointestinal: Denies abdominal pain, Denies change in bowel habits, Denies diarrhea, Denies nausea and Denies vomiting Musculoskeletal Musculoskeletal: Denies neck pain and Denies numbness Integumentary/Breasts Skin/Breast: Denies pruritus, Denies erythema, Denies rash and Denies wounds Neurologic Neurologic: Denies behavioral changes, Denies confusion, Denies dizziness, Denies frequent falls, Denies loss of vision, Denies numbness and Denies weakness Psychiatric Psychiatric: Denies anxiety, Denies behavioral changes, Denies confusion, Denies depression, Denies homicidal ideation and Denies suicidal ideation Endocrine Endocrine: Denies fatigue, Denies flushing and Denies palpitations Hematologic/Lymphatic Hematologic/Lymphatic: Denies easy bruising Allergic/Immunologic Allergic/Immunologic: Denies urticaria, Denies throat swelling and Denies wheezing Patient History Medical History CHF (congestive heart failure) Chronic atrial fibrillation Generalized anxiety disorder ICD (implantable cardioverter-defibrillator) in place Major depressive disorder, recurrent episode, moderate Mild neurocognitive disorder Surgical History History of gastric bypass History of hip replacement History of tonsillectomy Presence of cardiac pacemaker Family History Sister Mental health problem Social History Smoking Status: Former smoker Smoking Status: Former smoker alcohol intake frequency: holidays/special occasions only Substance Use Type: does not use Exam Narrative Exam Narrative: GENERAL: [75] year old patient appears stated age. Well- nourished, well-developed patient, in mild distress. Complaining of pain in his lower back HEAD: Atraumatic. Normocephalic. EYES: Pupils equal round and reactive. Extraocular motions intact. No scleral icterus. No injection or drainage. ENT: Nose without bleeding, purulent drainage. Throat without erythema, tonsi llar hypertrophy or exudate. Airway patent. NECK: Trachea midline. Non tender CARDIOVASCULAR: Regular rate and rhythm without murmurs, gallops, or rubs. RESPIRATORY: Faint crackles in bilateral bases, no significant respiratory distress as evidenced by use of intercostals or accessory muscles. No hypoxia. GASTROINTESTINAL: Abdomen soft, non-tender, nondistended. EXTREMITIES: No edema or joint tenderness. BACK: plow and boring machine tender but free of any obvious external abnormalities. Patient exam notes decreased range of motion and muscle spasm, but no CVA tenderness, or vertebral point tenderness. There are no symptoms of cauda equina such as saddle anesthesia, and decreased reflexes, decreased sensation or strength. NEURO: AOx3. 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/PCR) Stat 10/06/20 11:55 Complete Blood Count AUTO DIFF Stat Comprehensive Metabolic Panel Stat Magnesium Stat NT-proBNP (BNP-Adult 18+) Stat Prothrombin Time INR Stat Troponin & CK Cardiac Panel Stat 10/06/20 13:13 CT lumbar spine w con Stat Vital Signs Vital signs: Vital Signs - 8 hr 10/06/20 11:34 10/06/20 12:02 10/06/20 12:54 Temperature 97.6 F Pulse Rate 114 H 84 70 Respiratory Rate 26 H 18 Blood Pressure 163/90 H 146/69 H Pulse Oximetry 94 94 95 10/06/20 13:00 10/06/20 13:54 10/06/20 13:56 Temperature Pulse Rate 70 70 70 Respiratory Rate Blood Pressure 161/83 H 175/89 H 175/89 H Pulse Oximetry 95 95 95 10/06/20 13:57 10/06/20 14:05 10/06/20 14:07 Temperature Pulse Rate 70 70 Respiratory Rate Blood Pressure 185/95 H Pulse Oximetry 95 97 10/06/20 14:30 10/06/20 14:31 Temperature Pulse Rate 70 70 Respiratory Rate Blood Pressure 165/85 H Pulse Oximetry 96 97 MDM - Back Pain/Injury Lab Data Result diagrams: 10/06/20 11:55 10/06/20 11:55 Labs: Lab Results 10/06/20 10/06/20 10/06/20 Range/Units 11:51 11:55 11:55 WBC 4.5 (4.5-11.0) X10^3/uL RBC 4.66 (4.5-5.9) X10^6/uL Hgb 13.6 (13.5-17.5) g/dL Hct 41.4 (41-53) % MCV 88.8 (80-100) fL MCH 29.2 (26-34) PG MCHC 32.8 (30-36) % RDW 13.7 (11.6-14.8) % Plt Count 217 (150-400) X10^3/uL Neut % (Auto) 66.4 (50-75) % Lymph % (Auto) 21.5 L (25-40) % [place] % (Auto) 9.5 (3-14) % Eos % (Auto) 2.4 (2-4) % Baso % (Auto) 0.2 (0-2) % Neut # (Auto) 3000 (1486-5440) /uL Lymph # (Auto) 1000 L (2095-8938) /uL [place] # (Auto) 400 (0-900) /uL Eos # (Auto) 100 (0-450) /uL Baso # (Auto) 0 (0-100) /uL PT (10.1-12.7) SECONDS INR (0.9-1.3) Sodium 139 (137-145) mmol/L Potassium 4.0 (3.4-5.1) mmol/L Chloride 105 (98-107) mmol/L Carbon Dioxide 29 (22-32) mmol/L BUN 9 (9-20) mg/dL Creatinine 0.75 (0.66-1.25) mg/dL Estimated GFR > 60.0 (>60) mL/min BUN/Creatinine Ratio 12.0 (6-22) Glucose 141 H (80-110) mg/dL Calcium 9.4 (8.4-10.2) mg/dL Magnesium (1.6-2.3) mg/dL Total Bilirubin 0.4 (0.2-1.3) mg/dL AST 24 (17-59) IU/L ALT 13 (<50) IU/L Alkaline Phosphatase 64 (38-126) U/L Total Creatine Kinase (55-170) U/L CK-MB (CK-2) (<2.37) ng/mL CK-MB (CK-2) Rel Index (1.5-5.0) % Troponin I (0.01-0.034) ng/mL NT-Pro-B Natriuret Pep (<450) pg/mL Total Protein 6.5 (6.3-8.2) g/dL Albumin 3.9 (3.5-5.0) g/dL Globulin 2.6 (1.7-4.1) g/dL Albumin/Globulin Ratio 1.5 (1.0-2.8) SARS-CoV-2 (PCR) Negative (Negative) 10/06/20 10/06/20 Range/Units 11:55 11:55 WBC (4.5-11.0) X10^3/uL RBC (4.5-5.9) X10^6/uL Hgb (13.5-17.5) g/dL Hct (41-53) % MCV (80-100) fL MCH (26-34) PG MCHC (30-36) % RDW (11.6-14.8) % Plt Count (150-400) X10^3/uL Neut % (Auto) (50-75) % Lymph % (Auto) (25-40) % [place] % (Auto) (3-14) % Eos % (Auto) (2-4) % Baso % (Auto) (0-2) % Neut # (Auto) (3017-0400) /uL Lymph # (Auto) (3789-2431) /uL [place] # (Auto) (0-900) /uL Eos # (Auto) (0-450) /uL Baso # (Auto) (0-100) /uL PT 13.1 H (10.1-12.7) SECONDS INR 1.2 (0.9-1.3) Sodium (137-145) mmol/L Potassium (3.4-5.1) mmol/L Chloride (98-107) mmol/L Carbon Dioxide (22-32) mmol/L BUN (9-20) mg/dL Creatinine (0.66-1.25) mg/dL Estimated GFR (>60) mL/min BUN/Creatinine Ratio (6-22) Glucose (80-110) mg/dL Calcium (8.4-10.2) mg/dL Magnesium 1.9 (1.6-2.3) mg/dL Total Bilirubin (0.2-1.3) mg/dL AST (17-59) IU/L ALT (<50) IU/L Alkaline Phosphatase (38-126) U/L Total Creatine Kinase 113 (55-170) U/L CK-MB (CK-2) 2.48 H (<2.37) ng/mL CK-MB (CK-2) Rel Index 2.2 (1.5-5.0) % Troponin I 0.021 (0.01-0.034) ng/mL NT-Pro-B Natriuret Pep 1940 H (<450) pg/mL Total Protein (6.3-8.2) g/dL Albumin (3.5-5.0) g/dL Globulin (1.7-4.1) g/dL Albumin/Globulin Ratio (1.0-2.8) SARS-CoV-2 (PCR) (Negative) Imaging Data Chest x-ray: Radiologist's Impression: [address] [id number] ReportSigned Patient: Quentin Downing#: [id number]: 4Acct:[id number]/Sex: 75 / MDate of Service: 10/06/20Loc: EDAccession Number: [id number] Procedure: XR chest 2V Ordering Provider: Jg Thomas D.O. PROCEDURE: XR CHEST 2V INDICATIONS: SOB, fall, weak TECHNIQUE: 2 views of the chest were acquired. COMPARISON: [facility], , XR CHEST 1V, 02/25/2020, 10:01. FINDINGS: Surgical changes and devices: Left chest wall pacemaker leads are seen in the region of right atrium, right ventricle and left ventricle. Lungs and pleura: Lungs are clear. No pleural effusions or pneumothorax. Mediastinum: Mediastinal contours are normal. Heart size is enlarged. Bones and chest wall: No suspicious bony abnormalities. Soft tissues appear unremarkable. IMPRESSION: No acute cardiopulmonary pathology. Dictated by: Rolando Campbell M.D. on 10/06/2020 at 12:36 Approved by: Rolando Campbell M.D. on 10/06/2020 at 12:[address] w/contrast: Radiologist's Impression: [address] [id number] Scan ReportSigned Patient: Quentin Downing#: [id number]: 4Acct:[id number]/Sex: 75 / MDate of Service: 10/06/20Loc: [place] cession Number: [id number] Procedure: CT lumbar spine w con Ordering Provider: Jg Thomas D.O. PROCEDURE: CT LUMBAR SPINE W CON INDICATIONS: severe pain, multiple falls, blood thinners TECHNIQUE: After the administration of intravenous Isovue contrast, 3 mm thick sections acquired through the levels of interest. Sagittal and coronal reformats were then constructed. For radiation dose reduction, the following was used: automated exposure control. COMPARISON: None. FINDINGS: Vertebral body height maintained. No evidence of fracture. Normal lumbar lordosis present. Atherosclerotic calcification in the abdominal aorta noted without evidence of aneurysm. Biventricular pacemaker/defibrillator leads noted on general internist and physician leader film. There is mild dilation of the right common iliac artery measuring up to 1.7 cm. No dissection. L1-2: Moderate disc height loss and circumferential disc bulge present with mild hypertrophic facet joint to result in mild central and mild bilateral foraminal stenosis. L2-3: Moderate disc height loss with vacuum disc phenomena and circumferential disc bulge combined with mild hypertrophic facet joints results in moderate central stenosis narrowing the AP diameter of the thecal sac to 7 mm. Moderate bilateral foramin al stenosis present. L3-4: Mild disc height loss with vacuum disc phenomenon. Circumferential disc bulge, hypertrophic facet joints and ligamentum flavum laxity results in severe central stenosis narrowing the AP diameter of the thecal sac to 6 mm. Severe bilateral foraminal stenosis present. L4-5: Moderate disc height loss and vacuum disc phenomena present with moderate hypertrophic facet joints and ligamentum flavum laxity all combining to result in severe central stenosis narrowing the AP diameter of the thecal sac to 7 mm. There is severe bilateral foraminal stenosis present. 2 mm degenerative anterolisthesis noted. L5-S1: Disc height loss with vacuum disc phenomena again noted. Circumferential disc bulge and hypertrophic facet joints results in mild to moderate central stenosis but severe bilateral foraminal stenosis. IMPRESSION: No CT evidence of compression fracture or epidural hematoma. 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 No evidence of aortic aneurysm. Dictated by: Diego Noland M.D. on 10/06/2020 at 12:32 Approved by: Diego Noland M.D. on 10/06/2020 at 12:54 [facility] Narrative Medical decision making narrative: Multiple etiologies of back pain considered including; Epidural abscess, cauda equina, mass occupying lesion, and other considered Patient's symptoms improved over duration of stay with above-stated therapies. Findings and discharge diagnosis discussed with patient/family followed by verbalization of understanding Return precautions discussed with patient/family whom verbalize understanding. Discharge Plan Departure Patient Disposition: Home Clinical Impression: Lumbar back pain with radiculopathy affecting lower extremity Instructions: DI for Shortness of Breath, DI for Lumbar Radiculopathy Activity Restrictions/Additional Instructions: *You have been diagnosed with [low back pain with reassuring physical exam, CT demonstrates no fracture or hematoma. There is some suggestion the of dege nerative disc disease that could be pressing on peripheral nerves.] *What to do: *Please continue to take your regular medications as directed. Please take an extra Lasix (Furosemide) daily. [x] New medication prescriptions sent to your pharmacy: [[facility] ] [ ] New medication written as a paper prescription [ ] No new medications given *Please follow up with your primary care provider in 2-3 days, call for an appointment. Let them know you were seen in the Emergency Department and that we ask that you be seen in follow up. We will electronically transmit a record of today's note if your PCP is in our system *If you do not have a primary care provider please contact the [facility] Resource line at [phone]. They will ask some questions about your medical history and help get you set up with a doctor in the community. *Return to Emergency Department if you should have any new, worsening or concerning symptoms, such as [fever greater than 101 F, shaking chills, worsening pain, persistent vomiting, loss of control of bowel or bladder, lower extremity weakness or other bothersome symptoms] Prescriptions: New gabapentin 300 mg capsule 300 mg PO BEDTIME Qty: 14 RF: 0 methylprednisolone [Medrol (Gideon)] 4 mg tablets,dose pack See Rx Instructions .ROUTE .COMPLEX Qty: 21 RF: 0 No Action spironolactone 25 mg tablet 12.5 mg PO QAM RF: 0 metoprolol succinate 50 mg tablet extended release 24 hr 25 mg PO 90 Days RF: 0 methocarbamol 500 mg tablet 500 mg PO TID RF: 0 Myrbetriq 50 mg tablet extended release 24 hr PO RF: 0 levothyroxine 137 mcg tablet 137 mcg PO DAILY RF: 0 mirtazapine 30 mg tablet 30 mg PO BEDTIME Qty: 90 RF: 3 meclizine 12.5 mg tablet 12.5 mg PO DAILY RF: 0 rosuvastatin 20 mg tablet 20 mg PO DAILY RF: 0 tamsulosin 0.4 mg capsule 0.4 mg PO BEDTIME RF: 0 melatonin 5 mg capsule PO BEDTIME RF: 0 apixaban [Eliquis] 5 MG tablet 5 mg PO BID Qty: 0 RF: 0 beclomethasone dipropionate [Qvar] 80 MCG/PUFF aerosol 1 puff INH BID Qty: 0 RF: 0 albuterol sulfate [Ventolin HFA] 90 MCG/PUFF HFA aerosol inhaler 2 puff INH QDAY PRNQty: 0 RF: 0 fluticasone propionate [Flonase Allergy Relief] 9.9 ML spray,suspension 1 spray Intranasal QDAY Qty: 0 RF: 0 lisinopril 10 mg tablet 10 mg PO BID Qty: 0 RF: 0 trazodone 50 mg tablet 50 mg PO HS Qty: 90 RF: 3 hydrocodone-acetaminophen [Magnolia] 5-325 mg tablet 1 tab PO Q6H PRN (Reason: pain) Qty: 10 RF: 0 furosemide [Lasix] 40 mg tablet 40 mg PO DAILY Qty: 4 RF: 0 Referrals: Danie Randhawa MD [Primary Care Provider] -
--- NOTE | 2020-10-06 11:31 | DI.RAD.S_ITS ---
PROCEDURE: XR LUMBAR SPINE 2-3V INDICATIONS: fall with back pain TECHNIQUE: 3 views of the lumbar spine were acquired. COMPARISON: None. FINDINGS: Bones: 5 [id number] vertebrae are present. There is grade 1 anterolisthesis of L4 on L5. No vertebral body compression fractures. Degenerative endplate changes throughout lumbar spine is seen. No suspicious bony lesions. Soft tissues: Overlying bowel gas pattern is normal. No suspicious soft tissue calcifications. IMPRESSION: Degenerative disc disease throughout lumbar spine. No acute fracture or dislocation. Grade 1 anterolisthesis of L4 on L5. Dictated by: Rolando Campbell M.D. on 10/06/2020 at 12:44 Approved by: Rolando Campbell M.D. on 10/06/2020 at 12:45
--- NOTE | 2020-10-06 11:32 | DI.RAD.S_ITS ---
PROCEDURE: XR CHEST 2V INDICATIONS: SOB, fall, weak TECHNIQUE: 2 views of the chest were acquired. COMPARISON: [facility], , XR CHEST 1V, 02/25/2020, 10:01. FINDINGS: Surgical changes and devices: Left chest wall pacemaker leads are seen in the region of right atrium, right ventricle and left ventricle. Lungs and pleura: Lungs are clear. No pleural effusions or pneumothorax. Mediastinum: Mediastinal contours are normal. Heart size is enlarged. Bones and chest wall: No suspicious bony abnormalities. Soft tissues appear unremarkable. IMPRESSION: No acute cardiopulmonary pathology. Dictated by: Rolando Campbell M.D. on 10/06/2020 at 12:36 Approved by: Rolando Campbell M.D. on 10/06/2020 at 12:44
[2020-10-06 12:03] LABS: Add Manual Diff / Slide Review NO; Basophils Absolute Auto 0 /uL (0-100); Basophils Percent Auto 0.2 % (0-2); Eosinophils Absolute Auto 100 /uL (0-450); Eosinophils Percent Auto 2.4 % (2-4); Hematocrit 41.4 % (41-53); Hemoglobin 13.6 g/dL (13.5-17.5); Lymphocytes Absolute Auto 1000 /uL (1100-4500); Lymphocytes Percent Auto 21.5 % (25-40); Mean Corpuscular HGB Conc 32.8 % (30-36); Mean Corpuscular Hemoglobin 29.2 PG (26-34); Mean Corpuscular Volume 88.8 fL (80-100); Monocytes Absolute Auto 400 /uL (0-900); Monocytes Percent Auto 9.5 % (3-14); Neutrophils Absolute Auto 3000 /uL (1500-7000); Neutrophils Percent Auto 66.4 % (50-75); Platelet Count 217 X10^3/uL (150-400); Red Blood Cell Count 4.66 X10^6/uL (4.5-5.9); Red Cell Distribution Width 13.7 % (11.6-14.8); White Blood Cell Count 4.5 X10^3/uL (4.5-11.0)
[2020-10-06 12:14] LABS: Alanine Aminotransferase 13 IU/L (<50); Albumin 3.9 g/dL (3.5-5.0); Albumin Globulin Ratio 1.5 (1.0-2.8); Alkaline Phosphatase 64 U/L (38-126); Aspartate Aminotransferase 24 IU/L (17-59); Bilirubin Total 0.4 mg/dL (0.2-1.3); Blood Urea Nitrogen 9 mg/dL (9-20); Calcium 9.4 mg/dL (8.4-10.2); Carbon Dioxide 29 mmol/L (22-32); Chloride 105 mmol/L (98-107); Creatine Kinase 113 U/L (55-170); Estimated Glomerular Filt Rate > 60.0 mL/min (>60); Globulin 2.6 g/dL (1.7-4.1); Glucose 141 mg/dL (80-110); HEMOLYSIS 20 (0-50); Magnesium 1.9 mg/dL (1.6-2.3); Sodium 139 mmol/L (137-145); Total Protein 6.5 g/dL (6.3-8.2)
[2020-10-06 12:15] LABS: INR 1.2 (0.9-1.3); Prothrombin Time 13.1 SECONDS (10.1-12.7)
[2020-10-06 12:25] LABS: NT-proBNP (BNP-Adult 18+) 1940 pg/mL (<450); Troponin I 0.021 ng/mL (0.01-0.034)
[2020-10-06 12:29] LABS: CKMB % Relative Index 2.2 % (1.5-5.0); Creatine Kinase MB 2.48 ng/mL (<2.37)
--- NOTE | 2020-10-06 13:13 | DI.CT.S_ITS ---
PROCEDURE: CT LUMBAR SPINE W CON INDICATIONS: severe pain, multiple falls, blood thinners TECHNIQUE: After the administration of intravenous Isovue contrast, 3 mm thick sections acquired through the levels of interest. Sagittal and coronal reformats were then constructed. For radiation dose reduction, the following was used: automated exposure control. COMPARISON: None. FINDINGS: Vertebral body height maintained. No evidence of fracture. Normal lumbar lordosis present. Atherosclerotic calcification in the abdominal aorta noted without evidence of aneurysm. Biventricular pacemaker/defibrillator leads noted on experimental rocket sled mechanic film. There is mild dilation of the right common iliac artery measuring up to 1.7 cm. No dissection. L1-2: Moderate disc height loss and circumferential disc bulge present with mild hypertrophic facet joint to result in mild central and mild bilateral foraminal stenosis. L2-3: Moderate disc height loss with vacuum disc phenomena and circumferential disc bulge combined with mild hypertrophic facet joints results in moderate central stenosis narrowing the AP diameter of the thecal sac to 7 mm. Moderate bilateral foraminal stenosis present. L3-4: Mild disc height loss with vacuum disc phenomenon. Circumferential disc bulge, hypertrophic facet joints and ligamentum flavum laxity results in severe central stenosis narrowing the AP diameter of the thecal sac to 6 mm. Severe bilateral foraminal stenosis present. L4-5: Moderate disc height loss and vacuum disc phenomena present with moderate hypertrophic facet joints and ligamentum flavum laxity all combining to result in severe central stenosis narrowing the AP diameter of the thecal sac to 7 mm. There is severe bilateral foraminal stenosis present. 2 mm degenerative anterolisthesis noted. L5-S1: Disc height loss with vacuum disc phenomena again noted. Circumferential disc bulge and hypertrophic facet joints results in mild to moderate central stenosis but severe bilateral foraminal stenosis. IMPRESSION: No CT evidence of compression fracture or epidural hematoma. 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 No evidence of aortic aneurysm. Dictated by: Diego Noland M.D. on 10/06/2020 at 12:32 Approved by: Diego Noland M.D. on 10/06/2020 at 12:54
[2020-10-06 13:17] LABS: COVID19 - ADMIT (NP swab/PCR) Negative (Negative)
== END 2020-10-06 15:04 | disposition home or self-care (01) ==
PROVIDERS: Emergency Provider Emergency Medicine; PCP Family Medicine
DX: M54.16 Radiculopathy, lumbar region (principal); R06.02 Shortness of breath; Z20.822 Contact with and (suspected) exposure to COVID-19; M54.5 Low back pain; Z79.01 Long term (current) use of anticoagulants
CPT/HCPCS: 36415; 71046; 72100; 72132; 80053; 82550; 82553; 83735; 83880; 84484; 85025; 85610; 87635; 99284; C9803

== ENCOUNTER 2020-10-09 20:50 | Emergency (ER) | payer MEDICARE, BC, SELFPAY ==
[2020-10-09] VITALS (8 sets, daily range): BP systolic 190–204; BP diastolic 99–110; PULSE 69–84; RESP 28–48; TEMP 36.6; O2SAT 95–97; BMI 33.5
--- NOTE | 2020-10-09 21:12 | DI.RAD.S_ITS ---
PROCEDURE: XR CHEST 2V INDICATIONS: shortness of breath TECHNIQUE: 2 views of the chest were acquired. COMPARISON: [facility], CR, XR CHEST 2V, 10/06/2020, 12:17. FINDINGS: Surgical changes and devices: Left chest wall a AICD with leads extending into the right atrium, right ventricle, and coronary sinus redemonstrated. Lungs and pleura: There is mild interstitial prominence suggestive of mild pulmonary edema. No focal consolidation. No pleural effusions or pneumothorax. Mediastinum: Mediastinal contours are normal. Heart size is normal. Bones and chest wall: No suspicious bony abnormalities. Soft tissues appear unremarkable. IMPRESSION: 1. Mild interstitial prominence suggestive of mild pulmonary edema. Dictated by: Chas Salazar M.D. on 10/10/2020 at 8:54 Approved by: Chas Salazar M.D. on 10/10/2020 at 8:57
[2020-10-09 21:32] LABS: Add Manual Diff / Slide Review NO; Basophils Absolute Auto 100 /uL (0-100); Basophils Percent Auto 1.4 % (0-2); Eosinophils Absolute Auto 100 /uL (0-450); Eosinophils Percent Auto 2.1 % (2-4); Hematocrit 42.6 % (41-53); Hemoglobin 14.2 g/dL (13.5-17.5); Lymphocytes Absolute Auto 1200 /uL (1100-4500); Mean Corpuscular HGB Conc 33.3 % (30-36); Mean Corpuscular Hemoglobin 29.4 PG (26-34); Mean Corpuscular Volume 88.4 fL (80-100); Monocytes Absolute Auto 600 /uL (0-900); Monocytes Percent Auto 9.4 % (3-14); Neutrophils Absolute Auto 4700 /uL (1500-7000); Neutrophils Percent Auto 70.1 % (50-75); Platelet Count 229 X10^3/uL (150-400); Red Blood Cell Count 4.82 X10^6/uL (4.5-5.9); Red Cell Distribution Width 13.7 % (11.6-14.8); White Blood Cell Count 6.8 X10^3/uL (4.5-11.0)
[2020-10-09 21:43] LABS: Lactate (Lactic Acid) 1.5 mmol/L (0.7-2.1)
[2020-10-09 21:45] LABS: Alanine Aminotransferase 13 IU/L (<50); Albumin 4.3 g/dL (3.5-5.0); Albumin Globulin Ratio 1.7 (1.0-2.8); Alkaline Phosphatase 68 U/L (38-126); Aspartate Aminotransferase 23 IU/L (17-59); BUN Creatinine Ratio 16.7 (6-22); Bilirubin Total 0.5 mg/dL (0.2-1.3); Blood Urea Nitrogen 15 mg/dL (9-20); Calcium 9.2 mg/dL (8.4-10.2); Carbon Dioxide 30 mmol/L (22-32); Chloride 101 mmol/L (98-107); Estimated Glomerular Filt Rate > 60.0 mL/min (>60); Globulin 2.5 g/dL (1.7-4.1); Glucose 133 mg/dL (80-110); HEMOLYSIS < 15 (0-50); Sodium 140 mmol/L (137-145); Total Protein 6.8 g/dL (6.3-8.2)
[2020-10-09 21:52] LABS: NT-proBNP (BNP-Adult 18+) 2250 pg/mL (<450)
[2020-10-09 21:53] LABS: Magnesium 1.9 mg/dL (1.6-2.3)
[2020-10-09 22:06] LABS: Troponin I 0.028 ng/mL (0.01-0.034)
--- NOTE | 2020-10-09 23:05 | ED_ITS ---
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 He has been noticing symptoms for the last 3-4 weeks. It does appear that there has been changes to his Lasix prescription and it may be that he was recently decreased from 40 mg to 20 mg. Full axis to his medical records is not available at this time. He is unclear as to the specific Lasix dosing he has been using but notes that he is taking it regularly. He has his medi set box with him. He denies dizziness, near syncope, fever, headaches, abdominal pain, vomiting or diarrhea Related Data Home Medications Medication Instructions Recorded Confirmed apixaban [Eliquis] 5 mg PO BID #0 09/15/16 06/17/20 albuterol sulfate [Ventolin HFA] 2 puff INH QDAY PRN #0 09/06/17 06/17/20 beclomethasone dipropionate [Qvar] 1 puff INH BID #0 09/06/17 06/17/20 fluticasone propionate [Flonase 1 spray INTRANASAL QDAY #0 09/06/17 06/17/20 Allergy Relief] methocarbamol 500 mg tablet 500 mg PO TID 12/22/18 06/17/20 levothyroxine 137 mcg tablet 137 mcg PO DAILY tab 03/16/19 06/17/20 mirabegron 50 mg tablet,extended mg PO 03/16/19 06/17/20 release 24 hr lisinopril 10 mg tablet 10 mg PO BID #0 tab 08/31/19 06/17/20 meclizine 12.5 mg tablet 12.5 mg PO DAILY 08/31/19 06/17/20 melatonin 5 mg capsule mg PO BEDTIME cap 08/31/19 06/17/20 metoprolol succinate 50 mg 25 mg PO 90 Days tab 08/31/19 06/17/20 tablet,extended release 24 hr rosuvastatin 20 mg tablet 20 mg PO DAILY 08/31/19 06/17/20 spironolactone 25 mg tablet 12.5 mg PO QAM tab 08/31/19 06/17/20 tamsulosin 0.4 mg capsule 0.4 mg PO BEDTIME 08/31/19 06/17/20 Previous Rx's Medication Instructions Recorded hydrocodone-acetaminophen [Thor] 1 tab PO Q6H PRN #10 tab 04/03/19 furosemide [Lasix] 40 mg PO DAILY #4 tab 05/10/19 trazodone 50 mg tablet 50 mg PO HS #90 tab 04/21/20 mirtazapine 30 mg tablet 30 mg PO BEDTIME #90 tab 06/17/20 gabapentin 300 mg PO BEDTIME #14 cap 10/06/20 methylprednisolone [Medrol (Gideon)] See Rx Instructions .ROUTE 10/06/20 .COMPLEX #21 ea Allergies Allergy/AdvReac Type Severity Reaction Status Date / Time No Known Drug Allergies Allergy Verified 10/06/20 11:37 Review of Systems Review of Systems Narrative: Remainder of complete review of systems is otherwise unremarkable except for that included in the HPI. Patient History Medical History CHF (congestive heart failure) Chronic atrial fibrillation Generalized anxiety disorder ICD (implantable cardioverter-defibrillator) in place Major depressive disorder, recurrent episode, moderate Mild neurocognitive disorder Surgical History History of gastric bypass History of hip replacement History of tonsillectomy Presence of cardiac pacemaker Family History Sister Mental health problem Social History Smoking Status: Former smoker Smoking Status: Former smoker alcohol intake frequency: holidays/special occasions only Substance Use Type: does not use Exam Narrative Exam Narrative: General: Healthy appearing, in no acute distress. Well- nourished well-developed HEENT: Moist mucous membranes, normal sclera with reactive pupils, Neck: JVD at 45?, supple Respiratory: Lungs are clear to auscultation, no wheezing no rales no rhonchi. Full and symmetrical air movement Cardiac: Regular rate and rhythm no murmurs no bruits Abdomen: Soft, nontender, good bowel tones, no flank pain Skin: Warm and dry, no rashes Neurologic: Grossly neurologically intact with no obvious asymmetries or abnormalities Extremities: No trauma, well perfused, 3+ bilateral lower extremity edema Psych: Cooperative, appropriate insight and affect, normal speech fluency but some short-term memory deficits are appreciated Initial Vital Signs Initial Vital Signs: Vital Signs Temperature 97.9 F 10/09/20 21:00 Pulse Rate 84 10/09/20 21:00 Respiratory Rate 48 H 10/09/20 21:00 Blood Pressure 190/99 H 10/09/20 21:00 Pulse Oximetry 95 10/09/20 21:00 Course Orders Ordered: ED Orders 10/09/20 21:10 BNP [NT-proBNP (BNP-Adult 18+)] Stat Complete Blood Count AUTO DIFF Stat Comprehensive Metabolic Panel Stat Lactate (Lactic Acid) Stat Magnesium Stat Troponin I Stat 10/09/20 21:12 XR chest 2V Stat EKG-12 Lead Stat Measure peak expiratory flow ONCE RT Consult Eval and Treat Now Discontinued Medications Furosemide (Furosemide 100 Mg/10 Ml Vial) 80 mg IV NOW ONE Stop: 10/09/20 23:07 Last Admin: 10/09/20 23:23 Dose: 80 mg Documented by: BRENT Vital Signs Vital signs: Vital Signs - 8 hr 10/09/20 21:00 10/09/20 21:09 10/09/20 21:30 Temperature 97.9 F Pulse Rate 84 70 69 Respiratory Rate 48 H 37 H 35 H Blood Pressure 190/99 H Pulse Oximetry 95 95 95 10/09/20 22:10 10/09/20 22:30 10/09/20 23:00 Temperature Pulse Rate 71 69 69 Respiratory Rate 33 H 28 H 36 H Blood Pressure Pulse Oximetry 96 97 10/09/20 23:30 10/09/20 23:32 10/10/20 00:00 Temperature Pulse Rate 70 69 71 Respiratory Rate 36 H 30 H 32 H Blood Pressure 204/110 H Pulse Oximetry 95 96 10/10/20 00:03 Temperature Pulse Rate 69 Respiratory Rate 31 H Blood Pressure 190/93 H Pulse Oximetry 96 Medical Decision Making Medical Records Medical records reviewed: Yes I reviewed the patient's medical records. Lab Data Lab results reviewed: Yes I reviewed the patient's lab results. Result diagrams: 10/09/20 21:10 10/09/20 21:10 Labs: Lab Results 10/09/20 10/09/20 10/09/20 Range/Units 21:10 21:10 21:10 WBC 6.8 (4.5-11.0) X10^3/uL RBC 4.82 (4.5-5.9) X10^6/uL Hgb 14.2 (13.5-17.5) g/dL Hct 42.6 (41-53) % MCV 88.4 (80-100) fL MCH 29.4 (26-34) PG MCHC 33.3 (30-36) % RDW 13.7 (11.6-14.8) % Plt Count 229 (150-400) X10^3/uL Neut % (Auto) 70.1 (50-75) % Lymph % (Auto) 17.0 L (25-40) % [place] % (Auto) 9.4 (3-14) % Eos % (Auto) 2.1 (2-4) % Baso % (Auto) 1.4 (0-2) % Neut # (Auto) 4700 (7337-5405) /uL Lymph # (Auto) 1200 (7562-0943) /uL [place] # (Auto) 600 (0-900) /uL Eos # (Auto) 100 (0-450) /uL Baso # (Auto) 100 (0-100) /uL Sodium 140 (137-145) mmol/L Potassium 4.0 (3.4-5.1) mmol/L Chloride 101 (98-107) mmol/L Carbon Dioxide 30 (22-32) mmol/L BUN 15 (9-20) mg/dL Creatinine 0.90 (0.66-1.25) mg/dL Estimated GFR > 60.0 (>60) mL/min BUN/Creatinine Ratio 16.7 (6-22) Glucose 133 H (80-110) mg/dL Lactate 1.5 (0.7-2.1) mmol/L Calcium 9.2 (8.4-10.2) mg/dL Magnesium (1.6-2.3) mg/dL Total Bilirubin 0.5 (0.2-1.3) mg/dL AST 23 (17-59) IU/L ALT 13 (<50) IU/L Alkaline Phosphatase 68 (38-126) U/L Troponin I (0.01-0.034) ng/mL NT-Pro-B Natriuret Pep (<450) pg/mL Total Protein 6.8 (6.3-8.2) g/dL Albumin 4.3 (3.5-5.0) g/dL Globulin 2.5 (1.7-4.1) g/dL Albumin/Globulin Ratio 1.7 (1.0-2.8) 10/09/20 10/09/20 Range/Units 21:10 21:10 WBC (4.5-11.0) X10^3/uL RBC (4.5-5.9) X10^6/uL Hgb (13.5-17.5) g/dL Hct (41-53) % MCV (80-100) fL MCH (26-34) PG MCHC (30-36) % RDW (11.6-14.8) % Plt Count (150-400) X10^3/uL Neut % (Auto) (50-75) % Lymph % (Auto) (25-40) % [place] % (Auto) (3-14) % Eos % (Auto) (2-4) % Baso % (Auto) (0-2) % Neut # (Auto) (0300-7549) /uL Lymph # (Auto) (0140-6632) /uL [place] # (Auto) (0-900) /uL Eos # (Auto) (0-450) /uL Baso # (Auto) (0-100) /uL Sodium (137-145) mmol/L Potassium (3.4-5.1) mmol/L Chloride (98-107) mmol/L Carbon Dioxide (22-32) mmol/L BUN (9-20) mg/dL Creatinine (0.66-1.25) mg/dL Estimated GFR (>60) mL/min BUN/Creatinine Ratio (6-22) Glucose (80-110) mg/dL Lactate (0.7-2.1) mmol/L Calcium (8.4-10.2) mg/dL Magnesium 1.9 (1.6-2.3) mg/dL Total Bilirubin (0.2-1.3) mg/dL AST (17-59) IU/L ALT (<50) IU/L Alkaline Phosphatase (38-126) U/L Troponin I 0.028 (0.01-0.034) ng/mL NT-Pro-B Natriuret Pep 2250 H (<450) pg/mL Total Protein (6.3-8.2) g/dL Albumin (3.5-5.0) g/dL Globulin (1.7-4.1) g/dL Albumin/Globulin Ratio (1.0-2.8) MDM Narrative Medical decision making narrative: 75-year-old gentleman with history of congestive heart failure with what appears to be mild acute exacerbation. Does have lower extremity edema and exertional dyspnea. Clinical exam aside from mild JVD does not suggest severe crackles and x-ray is demonstrating minimal volume overload. ProBNP is slightly elevated. He is given 80 mg of IV Lasix in the emergency department and voids almost a L with significant improvement in overall symptoms. He is not hypoxic, not having chest pain and is normotensive. There is no indication for hospitalization at this time. 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 He states his understanding and is safe for home discharge Discharge Plan Departure Patient Disposition: Home Clinical Impression: CHF (congestive heart failure) Qualifiers: Heart failure type: unspecified Heart failure chronicity: acute on chronic Qual ified Code(s): I50.9 - Heart failure, unspecified Instructions: DI for Heart Failure Activity Restrictions/Additional Instructions: thank you for coming in today. You are having a mild exacerbation of your chronic heart failure. You have water building up in your lungs and this is making you short of breath as well as having increased swelling. It looks like you filled a lasix prescription for 20mg pills in early August for 180 pills. I would like you to increase the lasix by one pill/day. If you are currently taking only one, then take 2. If you are taking 2, then take 3. Please schedule a follow up appointment with Dr Ospina in 1-2 weeks to make sure you are doing well and to adjust the dose of lasix if needed. If you are feeling worse, have chest pain, worsening shortness of breath, develop a fever or cough, please return to the ER. Prescriptions: No Action spironolactone 25 mg tablet 12.5 mg PO QAM RF: 0 metoprolol succinate 50 mg tablet extended release 24 hr 25 mg PO 90 Days RF: 0 methocarbamol 500 mg tablet 500 mg PO TID RF: 0 Myrbetriq 50 mg tablet extended release 24 hr PO RF: 0 levothyroxine 137 mcg tablet 137 mcg PO DAILY RF: 0 mirtazapine 30 mg tablet 30 mg PO BEDTIME Qty: 90 RF: 3 meclizine 12.5 mg tablet 12.5 mg PO DAILY RF: 0 rosuvastatin 20 mg tablet 20 mg PO DAILY RF: 0 tamsulosin 0.4 mg capsule 0.4 mg PO BEDTIME RF: 0 melatonin 5 mg capsule PO BEDTIME RF: 0 apixaban [Eliquis] 5 MG tablet 5 mg PO BID Qty: 0 RF: 0 beclomethasone dipropionate [Qvar] 80 MCG/PUFF aerosol 1 puff INH BID Qty: 0 RF: 0 albuterol sulfate [Ventolin HFA] 90 MCG/PUFF HFA aerosol inhaler 2 puff INH QDAY PRNQty: 0 RF: 0 fluticasone propionate [Flonase Allergy Relief] 9.9 ML spray,suspension 1 spray Intranasal QDAY Qty: 0 RF: 0 lisinopril 10 mg tablet 10 mg PO BID Qty: 0 RF: 0 trazodone 50 mg tablet 50 mg PO HS Qty: 90 RF: 3 hydrocodone-acetaminophen [Thor] 5-325 mg tablet 1 tab PO Q6H PRN (Reason: pain) Qty: 10 RF: 0 furosemide [Lasix] 40 mg tablet 40 mg PO DAILY Qty: 4 RF: 0 gabapentin 300 mg capsule 300 mg PO BEDTIME Qty: 14 RF: 0 methylprednisolone [Medrol (Gideon)] 4 mg tablets,dose pack See Rx Instructions .ROUTE .COMPLEX Qty: 21 RF: 0 Referrals: Danie Randhawa MD [Primary Care Provider] -
[2020-10-09] MEDS: FUROSEMIDE 100 MG/10 ML VIAL 80 MG IV (23:23)
[2020-10-10] VITALS: PULSE 71; RESP 32
[2020-10-10 00:03] VITALS: BP 190/93; PULSE 69; RESP 31; O2SAT 96
== END 2020-10-10 00:29 | disposition home or self-care (01) ==
PROVIDERS: Emergency Provider Emergency Medicine; PCP Family Medicine
DX: I50.9 Heart failure, unspecified (principal); I48.91 Unspecified atrial fibrillation; Z79.01 Long term (current) use of anticoagulants
CPT/HCPCS: 36415; 71046; 80053; 83605; 83735; 83880; 84484; 85025; 93005; 93010; 96374; 99284; J1940

== ENCOUNTER → 2020-10-28 14:58 | Outpatient (CLI) | payer MEDICARE, BC, SELFPAY ==
--- NOTE | 2020-10-28 15:00 | DI.ECHO.S_ITS ---
[facility]---------+ [facility] +---------+ : : [address] [place] [address] : : : : [id number] : : : : Phone: [phone]+ Echocardiogram Report + + :Name: SKY ONEAL Study Date: 10/28/2020 Height: 73 in : :[facility] ReadingLocation: Weight: 264 lb: : Gender: Male BSA: 2.4 m2 : :: 1945 Age: 75 yrs : :Reason For Study: CHRONIC SYSTOLIC HEART FAILURE : :Ordering Physician: TARA, : :AVRIL Performed By: Macy Humphrey : :Referring: AVRIL PACHECO : + + Interpretation Summary Left ventricular systolic function remains mildly reduced with an estimated ejection fraction of around 45% with a significant dyssynchronous contraction pattern and mild global hypokinesis that appears somewhat worse in the inferior and proximal posterior segments but is unchanged from the previous exam. Left ventricular size is mildly increased but significantly smaller compared to the previous exam. While diastolic function cannot be accurately assessed due to the paced rhythm and atrial fibrillation, there is no evidence for increased filling pressures which are likely lower compared to the previous study. The right ventricle is normal in size with mildly reduced systolic function and appears unchanged from the previous exam. Right ventricular systolic pressure is likely around 23 mmHg with a CVP of 3 mmHg, similar to the previous study. There is severe left atrial enlargement and moderate right atrial enlargement but both are unchanged in size. There is trivial mitral, tricuspid, and aortic regurgitation that appear to be less prominent compared to the previous study. The ascending aorta is moderately enlarged and measures slightly larger compared to the previous study. Procedure: A two-dimensional transthoracic echocardiogram with color flow and Doppler was performed. The study quality was technically difficult. A contrast injection of Definity was performed to improve assessment of LV function. The patient has a paced rhythm. The heart rate ranged between 69-74 bpm during the study. Left Ventricle: The left ventricle is mildly dilated. This is significantly smaller compared to the previous study. The estimated left ventricular end diastolic volume is 125 mL compared to 207 ml. There is mild-moderate concentric left ventricular hypertrophy. Left ventricular systolic function is mildly reduced. Left ventricular ejection fraction is estimated to be 45 +/- 5%. There is a mild dyssynchronous contraction pattern due to the paced rhythm. There is mild global hypokinesis of the left ventricle. This appears to be somewhat worse in the inferior wall and proximal posterior wall that appears unchanged from the previous exam. Distolic function cannot be assessed 'due to atrial fibrillation although there is no evidence of increased filling pressures'. This is likely lower compared to the previous study. Right Ventricle: There is a pacemaker lead in the right ventricle. The right ventricle is normal size. Right ventricular systolic function is mildly reduced. This is unchanged compared to the previous study. Atria: The left atrium is severely dilated. The right atrium is moderately dilated. This is unchanged compared to the previous study. There is a catheter/pacemaker lead seen in the right atrium. There is no Doppler evidence for an interatrial shunt. Mitral Valve: The mitral valve leaflets appear mildly thickened, but open well. There is mild mitral annular calcification. There is trace mitral regurgitation. This is less prominent compared to the previous study. Aortic Valve: There is mild aortic valve sclerosis. The aortic valve is slightly calcified. The aortic valve opens well. There is no aortic valve stenosis. There is trace aortic regurgitation. Tricuspid Valve: The tricuspid valve is not well visualized, but is grossly normal. There is trace tricuspid regurgitation. This is less prominent compared to the previous study. The right ventricular systolic pressure is estimated to be at least 23 mmHg based on an estimated right atrial pressure of 3 mm Hg. This is unchanged compared to the previous study. Pulmonic Valve: The pulmonic valve is not well visualized. Great Vessels: The aortic root is normal size. The ascending aorta is moderately enlarged. This is slightly larger compared to the previous study. The IVC is of normal diameter and collapses greater than 50% with a sniff. This suggests a low right atrial pressure of 3 mm Hg. Pericardium/ Pleura There is no pericardial effusion. There is no pleural effusion. MMode/2D Measurements & Calculations LVIDd: 5.5 cm LVOT diam: 2.3 cm LVIDs: 4.3 cm Ao root diam: 3.4 cm FS: 21.7 % asc Aorta Diam: 4.3 cm EPSS: 1.2 cm Ao Arch Diam (Prox Trans): 2.8 cm IVSd: 1.4 cm LVPWd: 1.2 cm LV camp. diameter/BSA (cm/m^2): 2.3 LV sys. diameter/BSA (cm/m^2): 1.8 LA A2 area: 28.1 cm2 RA long axis: 6.4 cm LA A4 area: 36.4 cm2 RA area: 28.1 cm2 LA length (vol): 7.1 cm RA vol: 104.3 ml LA vol: 121.7 ml RA : 43.1 ml/m2 LA vol index: 50.3 ml/m2 IVC diam: 0.87 cm RVD1 (basal): 2.9 cm TAPSE: 1.5 cm Doppler Measurements & Calculations Ao V2 max: 96.2 cm/sec LVOT Max Mahesh: 53.4 cm/sec Ao V2 mean: 72.5 cm/sec LV V1 max P.1 mmHg Ao max P.7 mmHg LV V1 VTI: 8.1 cm Ao mean P.3 mmHg ADE(I,D): 2.0 cm2 Ao V2 VTI: 17.4 cm ADE(V,D): 2.4 cm2 sev ratio: 0.46 ADE indexed to BSA (cm^2/m^2): 0.82 MV E max mahesh: 52.2 cm/sec TR max mahesh: 220.6 cm/sec MV A max mahesh: 24.0 cm/sec TR max P.5 mmHg MV E/A: 2.2 Med Peak E' Mahesh: 7.7 cm/sec E/E' med: 6.8 Lat Peak E' Mahesh: 11.7 cm/sec E/E' lat: 4.4 E/e' average: 5.6 MV dec time: 0.17 sec SV(LVOT): 34.7 ml Reading Physician:12:49 PM
== END ==
PROVIDERS: PCP Family Medicine; Referring Provider Specialist; Visit Provider Specialist
DX: I50.22 Chronic systolic (congestive) heart failure (principal); I10 Essential (primary) hypertension; I51.7 Cardiomegaly; I34.0 Nonrheumatic mitral (valve) insufficiency; I07.1 Rheumatic tricuspid insufficiency; I35.1 Nonrheumatic aortic (valve) insufficiency
CPT/HCPCS: C8929; Q9957

== ENCOUNTER 2021-11-20 17:00 | Emergency (ER) | payer MEDICARE, SELFPAY ==
[2021-11-20] VITALS (21 sets, daily range): BP systolic 150–186; BP diastolic 77–136; PULSE 69–80; RESP 18–50; TEMP 36.4; O2SAT 94–98; BMI 34.1
--- NOTE | 2021-11-20 17:23 | DI.RAD.S_ITS ---
PROCEDURE: XR CHEST 2V INDICATIONS: shortness of breath TECHNIQUE: 2 views of the chest were acquired. COMPARISON: [facility], CT, CT ANGIO CHEST ABDOMEN, 05/26/2021, 0:23. [facility], CR, XR CHEST 1 VIEW, 05/25/2021, 21:43. [facility], CR, XR CHEST 2V, 10/06/2020, 12:17. [facility], CR, XR CHEST 2V, 10/09/2020, 21:54. FINDINGS: Surgical changes and devices: An AICD is seen. The leads are seen in stable positions. Lungs and pleura: Lungs are clear. No pleural effusions or pneumothorax. The lungs are hyperexpanded, with flattening of the hemidiaphragms seen. Mediastinum: The cardiac contours are moderately enlarged. The aorta demonstrates calcification and tortuosity. Bones and chest wall: No suspicious bony abnormalities. Mild dextroconvex scoliotic curvature is seen. Age-appropriate bony degenerative changes are seen. Soft tissues appear unremarkable. IMPRESSION: Clear lungs, which are hyperexpanded. Moderate cardiomegaly. Postoperative and degenerative changes are seen. Dictated by: Ankur Murray M.D. on 11/20/2021 at 17:08 Approved by: Ankur Murray M.D. on 11/20/2021 at 17:09
[2021-11-20 17:34] LABS: COVID19 -Nasal RAPID Negative (Negative)
[2021-11-20 17:57] LABS: Add Manual Diff / Slide Review NO; Basophils Absolute Auto 200 /uL (0-100); Basophils Percent Auto 4.4 % (0-2); Eosinophils Absolute Auto 200 /uL (0-450); Hematocrit 40.1 % (41-53); Hemoglobin 13.6 g/dL (13.5-17.5); Lymphocytes Absolute Auto 500 /uL (1100-4500); Lymphocytes Percent Auto 9.6 % (25-40); Mean Corpuscular HGB Conc 33.9 % (30-36); Mean Corpuscular Hemoglobin 29.6 PG (26-34); Mean Corpuscular Volume 87.5 fL (80-100); Monocytes Absolute Auto 300 /uL (0-900); Monocytes Percent Auto 6.7 % (3-14); Neutrophils Absolute Auto 3700 /uL (1500-7000); Neutrophils Percent Auto 75.3 % (50-75); Platelet Count 239 X10^3/uL (150-400); Red Blood Cell Count 4.59 X10^6/uL (4.5-5.9); Red Cell Distribution Width 14.2 % (11.6-14.8)
[2021-11-20 18:02] LABS: Creatine Kinase 101 U/L (55-170)
[2021-11-20 18:03] LABS: Lactate (Lactic Acid) 1.6 mmol/L (0.7-2.1)
[2021-11-20 18:04] LABS: Alanine Aminotransferase 13 IU/L (<50); Albumin Globulin Ratio 1.5 (1.0-2.8); Alkaline Phosphatase 68 U/L (38-126); Aspartate Aminotransferase 26 IU/L (17-59); BUN Creatinine Ratio 13.8 (6-22); Bilirubin Total 0.5 mg/dL (0.2-1.3); Blood Urea Nitrogen 12 mg/dL (9-20); Calcium 9.1 mg/dL (8.4-10.2); Carbon Dioxide 27 mmol/L (22-32); Chloride 105 mmol/L (98-107); Estimated Glomerular Filt Rate > 60 mL/min (>60); Globulin 2.7 g/dL (1.7-4.1); Glucose 160 mg/dL (80-110); HEMOLYSIS 31 (0-50); Sodium 137 mmol/L (137-145); Total Protein 6.7 g/dL (6.3-8.2)
[2021-11-20 18:13] LABS: NT-proBNP (BNP-Adult 18+) 2880 pg/mL (<450)
[2021-11-20 18:15] LABS: Troponin I 0.036 ng/mL (0.01-0.034)
[2021-11-20 18:18] LABS: Creatine Kinase MB 2.06 ng/mL (<2.37)
--- NOTE | 2021-11-20 18:43 | ED_ITS ---
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 He has been short of breath with episodes of rapid heart rate for the past 3 weeks or so. He denies any change in medications or diet. He states he has been taking his medications as directed. He states if anything perhaps he has lost a few lb but certainly has not gained any significant weight. He admits to increasing shortness of breath with exertion and is taking longer for him to recover upon completion of any activity. His last echo was about 1 year ago and showed global hypokinesis Related Data Home Medications Medication Instructions Recorded Confirmed apixaban 5 mg tablet (Eliquis) 5 mg PO BID ##0 09/15/16 06/17/20 albuterol sulfate 90 mcg/actuation 2 puff INH QDAY PRN ##0 09/06/17 06/17/20 aerosol inhaler (Ventolin HFA) beclomethasone dipropionate 80 1 puff INH BID ##0 09/06/17 06/17/20 mcg/actuation aerosol inhaler (Qvar) fluticasone propionate 50 1 spray intranasal QDAY ##0 09/06/17 06/17/20 mcg/actuation nasal spray,suspension (Flonase Allergy Relief) methocarbamol 500 mg tablet 500 mg PO TID 12/22/18 06/17/20 levothyroxine 137 mcg tablet 137 mcg PO DAILY 03/16/19 06/17/20 mirabegron 50 mg tablet,extended mg PO 03/16/19 06/17/20 release 24 hr lisinopril 10 mg tablet 10 mg PO BID #0 tabs 08/31/19 06/17/20 meclizine 12.5 mg tablet 12.5 mg PO DAILY 08/31/19 06/17/20 melatonin 5 mg capsule mg PO BEDTIME 08/31/19 06/17/20 metoprolol succinate 50 mg 25 mg PO 90 days 08/31/19 06/17/20 tablet,extended release 24 hr rosuvastatin 20 mg tablet 20 mg PO DAILY 08/31/19 06/17/20 spironolactone 25 mg tablet 12.5 mg PO QAM 08/31/19 06/17/20 tamsulosin 0.4 mg capsule 0.4 mg PO BEDTIME 08/31/19 06/17/20 Previous Rx's Medication Instructions Recorded hydrocodone 5 mg-acetaminophen 325 1 tab PO Q6H PRN pain #10 tabs 04/03/19 mg tablet (Aredale) furosemide 40 mg tablet (Lasix) 40 mg PO DAILY #4 tabs 05/10/19 mirtazapine 30 mg tablet 30 mg PO BEDTIME #90 tabs 06/17/20 gabapentin 300 mg capsule 300 mg PO BEDTIME #14 caps 10/06/20 methylprednisolone 4 mg tablets in See Rx Instructions PO .COMPLEX 10/06/20 a dose pack (Medrol (Gideon)) #21 ea trazodone 50 mg tablet 50 mg PO HS #90 tabs 05/06/21 furosemide 40 mg tablet (Lasix) 40 mg PO DAILY #3 tabs 11/20/21 Allergies Allergy/AdvReac Type Severity Reaction Status Date / Time No Known Drug Allergies Allergy Verified 11/20/21 17:15 Review of Systems Review of Systems Narrative: GENERAL: See HPI HEENT: Denies sinus pain, ear pain, sore throat, difficulty swallowing, dizziness. RESPIRATORY: Denies dyspnea, cough, wheezing, hemoptysis, sputum. CARDIOVASCULAR: See HPI GASTROINTESTINAL: Denies nausea, vomiting, abdominal pain, diarrhea, constipation, melena. : Denies dysuria, frequency, incontinence, hematuria, urinary retention. MUSCULOSKELETAL: denies weakness, joint pain, or bony pain SKIN: Denies rash, skin lesions, or other NEUROLOGIC: Denies weakness, headache, numbness, change in speech, confusion, seizures, incoordination. PSYCHIATRIC: No concerning psychosocial issues. 12 point review of systems is negative except for those stated above Patient History Medical History (Updated 11/20/21 @ 23:10 by Jg Thomas DO) CHF (congestive heart failure) Chronic atrial fibrillation Generalized anxiety disorder ICD (implantable cardioverter-defibrillator) in place Major depressive disorder, recurrent episode, moderate Mild neurocognitive disorder Surgical History History of gastric bypass History of hip replacement History of tonsillectomy Presence of cardiac pacemaker Family History Sister Mental health problem Social History Smoking Status: Former smoker Smoking Status: Former smoker alcohol intake frequency: holidays/special occasions only Substance Use Type: does not use Exam Narrative Exam Narrative: GENERAL: [76] year old patient appears stated age. Well-developed patient, in mild distress. Significantly short of breath with minimal exertion HEAD: Atraumatic. Normocephalic. EYES: Pupils equal round and reactive. Extraocular motions intact. No scleral icterus. No injection or drainage. ENT: Nose without bleeding, purulent drainage. Throat without erythema, tonsillar hypertrophy or exudate. Airway patent. NECK: Trachea midline. Non tender CARDIOVASCULAR: Regular rate and rhythm without murmurs, gallops, or rubs. RESPIRATORY: Decreased lung sounds throughout without obvious or significant abnormal signs, increased work of breathing noted GASTROINTESTINAL: Abdomen soft, non-tender, nondistended. EXTREMITIES: No edema or joint tenderness. BACK: Nontender without deformity or crepitance. No flank tenderness. NEURO: AOx3. SKIN: No rash or erythema of visible areas Initial Vital Signs Initial Vital Signs: Vital Signs Pulse Rate 72 11/20/21 17:11 Respiratory Rate 29 H 11/20/21 17:11 Pulse Oximetry 97 11/20/21 17:11 Course Orders Ordered: ED Orders 11/20/21 17:11 COVID19 -Nasal RAPID/Pre-Proc Stat 11/20/21 17:18 Complete Blood Count AUTO DIFF Stat Comprehensive Metabolic Panel Stat Lactate (Lactic Acid) Stat NT-proBNP (BNP-Adult 18+) Stat Troponin & CK Cardiac Panel Stat 11/20/21 17:23 XR chest 2V Stat EKG-12 Lead Stat 11/20/21 21:47 Troponin & CK Cardiac Panel Stat Discontinued Medications Furosemide (Furosemide 40 Mg/4 Ml Vial) 40 mg IV NOW ONE Stop: 11/20/21 19:23 Last Admin: 11/20/21 19:31 Dose: 40 mg Documented By: MICKEY Reevaluation(s) Reevaluation #1: patient feeling better, but still SOB with ambulation. He was given Lasix 40mg IVP and is producing dilute urine. Reevaluation #2: ambulatory pulse ox in mid 90s Vital Signs Vital signs: Vital Signs - 8 hr 11/20/21 17:52 11/20/21 17:52 11/20/21 18:00 Pulse Rate 76 Respiratory Rate 30 H Blood Pressure 172/94 H 170/88 H Pulse Oximetry 97 11/20/21 18:00 11/20/21 18:30 11/20/21 18:31 Pulse Rate 69 71 70 Respiratory Rate 29 H 33 H 47 H Blood Pressure Pulse Oximetry 96 11/20/21 18:31 11/20/21 19:00 11/20/21 19:01 Pulse Rate 69 Respiratory Rate Blood Pressure 177/136 H 180/84 H Pulse Oximetry 98 11/20/21 19:01 11/20/21 21:50 11/20/21 19:30 Pulse Rate 69 69 Respiratory Rate 18 32 H Blood Pressure Pulse Oximetry 97 94 97 11/20/21 19:31 11/20/21 19:31 11/20/21 20:00 Pulse Rate 69 74 Respiratory Rate 32 H 25 H Blood Pressure 178/99 H Pulse Oximetry 97 11/20/21 20:30 11/20/21 21:02 11/20/21 21:37 Pulse Rate 77 79 80 Respiratory Rate 50 H 27 H 19 Blood Pressure Pulse Oximetry 96 95 11/20/21 22:00 11/20/21 23:06 11/20/21 23:07 Pulse Rate 69 76 76 Respiratory Rate 29 H Blood Pressure Pulse Oximetry 97 97 11/20/21 23:07 Pulse Rate 78 Respiratory Rate Blood Pressure 181/99 H Pulse Oximetry 97 MDM - SOB/Dyspnea Lab Data Result diagrams: 11/20/21 17:18 11/20/21 17:18 Labs: Lab Results 11/20/21 11/20/21 11/20/21 Range/Units 17:11 17:18 17:18 WBC 5.0 (4.5-11.0) X10^3/uL RBC 4.59 (4.5-5.9) X10^6/uL Hgb 13.6 (13.5-17.5) g/dL Hct 40.1 L (41-53) % MCV 87.5 (80-100) fL MCH 29.6 (26-34) PG MCHC 33.9 (30-36) % RDW 14.2 (11.6-14.8) % Plt Count 239 (150-400) X10^3/uL Neut % (Auto) 75.3 H (50-75) % Lymph % (Auto) 9.6 L (25-40) % [place] % (Auto) 6.7 (3-14) % Eos % (Auto) 4.0 (2-4) % Baso % (Auto) 4.4 H (0-2) % Neut # (Auto) 3700 (7455-7628) /uL Lymph # (Auto) 500 L (1557-0224) /uL [place] # (Auto) 300 (0-900) /uL Eos # (Auto) 200 (0-450) /uL Baso # (Auto) 200 H (0-100) /uL Sodium 137 (137-145) mmol/L Potassium 4.0 (3.4-5.1) mmol/L Chloride 105 (98-107) mmol/L Carbon Dioxide 27 (22-32) mmol/L BUN 12 (9-20) mg/dL Creatinine 0.87 (0.66-1.25) mg/dL Estimated GFR > 60 (>60) mL/min BUN/Creatinine Ratio 13.8 (6-22) Glucose 160 H (80-110) mg/dL Lactate (0.7-2.1) mmol/L Calcium 9.1 (8.4-10.2) mg/dL Total Bilirubin 0.5 (0.2-1.3) mg/dL AST 26 (17-59) IU/L ALT 13 (<50) IU/L Alkaline Phosphatase 68 (38-126) U/L Total Creatine Kinase (55-170) U/L CK-MB (CK-2) (<2.37) ng/mL CK-MB (CK-2) Rel Index (1.5-5.0) % Troponin I (0.01-0.034) ng/mL NT-Pro-B Natriuret Pep 2880 H (<450) pg/mL Total Protein 6.7 (6.3-8.2) g/dL Albumin 4.0 (3.5-5.0) g/dL Globulin 2.7 (1.7-4.1) g/dL Albumin/Globulin Ratio 1.5 (1.0-2.8) SARS-CoV-2 (PCR) Negative (Negative) 11/20/21 11/20/21 11/20/21 Range/Units 17:18 17:18 21:47 WBC (4.5-11.0) X10^3/uL RBC (4.5-5.9) X10^6/uL Hgb (13.5-17.5) g/dL Hct (41-53) % MCV (80-100) fL MCH (26-34) PG MCHC (30-36) % RDW (11.6-14.8) % Plt Count (150-400) X10^3/uL Neut % (Auto) (50-75) % Lymph % (Auto) (25-40) % [place] % (Auto) (3-14) % Eos % (Auto) (2-4) % Baso % (Auto) (0-2) % Neut # (Auto) (3837-3778) /uL Lymph # (Auto) (0662-2099) /uL [place] # (Auto) (0-900) /uL Eos # (Auto) (0-450) /uL Baso # (Auto) (0-100) /uL Sodium (137-145) mmol/L Potassium (3.4-5.1) mmol/L Chloride (98-107) mmol/L Carbon Dioxide (22-32) mmol/L BUN (9-20) mg/dL Creatinine (0.66-1.25) mg/dL Estimated GFR (>60) mL/min BUN/Creatinine Ratio (6-22) Glucose (80-110) mg/dL Lactate 1.6 (0.7-2.1) mmol/L Calcium (8.4-10.2) mg/dL Total Bilirubin (0.2-1.3) mg/dL AST (17-59) IU/L ALT (<50) IU/L Alkaline Phosphatase (38-126) U/L Total Creatine Kinase 101 114 (55-170) U/L CK-MB (CK-2) 2.06 2.42 H (<2.37) ng/mL CK-MB (CK-2) Rel Index 2.0 2.1 (1.5-5.0) % Troponin I 0.036 H 0.052 H (0.01-0.034) ng/mL NT-Pro-B Natriuret Pep (<450) pg/mL Total Protein (6.3-8.2) g/dL Albumin (3.5-5.0) g/dL Globulin (1.7-4.1) g/dL Albumin/Globulin Ratio (1.0-2.8) SARS-CoV-2 (PCR) (Negative) Imaging Data Chest x-ray: Radiologist's Impression: Quentin Downing?(Grey)??76??M??1945 ? Allergy/Adv: No Known Drug Allergies (More??) Close Chest X-Ray (Signed) Ankur Murray - 11/20/21 Chest X-Ray (Signed) Chas Salazar - 10/09/[address] (Signed) Diego Noland - 10/06/20 Chest X-Ray (Signed) Rolando Campbell - 10/06/20 Lumbar Spine X-Ray (Signed) Rolando Campbell - 10/06/20 Chest X-Ray (Signed) Juan David Allison - 02/25/20 Hip X-Ray (Signed) Juan David Allison - 06/18/19 Chest X-Ray (Signed) Shannan Gee - 05/20/19 Chest X-Ray (Signed) Yomi Saldaña - 05/10/19 Hip X-Ray (Signed) Rafael Tapia - 04/03/19 Chest X-Ray (Signed) Polo Llanes - 12/10/17 [address] [address] XRay Report Signed Patient: Quentin Downing MR#: [id number] : 1945 Acct:[id number] Age/Sex: 76 / M Date of Service: 11/20/21 Loc: ED Accession Number: [id number] ?? Procedure: XR chest 2V Ordering Provider: Matheus Cueva D.O. PROCEDURE:? XR CHEST 2V ? INDICATIONS:? shortness of breath ? TECHNIQUE:? 2 views of the chest were acquired.? ? COMPARISON:? [facility], CT, CT ANGIO CHEST ABDOMEN, 05/26/2021, 0:23.? [facility], CR, XR CHEST 1 VIEW, 05/25/2021, 21:43.? [facility], CR, XR CHEST 2V, 10/06/2020, 12:17.? [facility], CR, XR CHEST 2V, 10/09/2020, 21:54. ? FINDINGS:? ? Surgical changes and devices:? An AICD is seen.? The leads are seen in stable positions.? ? ? Lungs and pleura:? Lungs are clear.? No pleural effusions or pneumothorax.? The lungs are hyperexpanded, with flattening of the hemidiaphragms seen. ? Mediastinum:? The cardiac contours are moderately enlarged. The aorta demonstrates calcification and tortuosity. ? Bones and chest wall:? No suspicious bony abnormalities.? Mild dextroconvex scoliotic curvature is seen.? Age-appropriate bony degenerative changes are seen. ? Soft tissues appear unremarkable.? ? ? IMPRESSION:? ? Clear lungs, which are hyperexpanded. ? Moderate cardiomegaly. ? Postoperative and degenerative changes are seen.? ? Dictated by: Ankur Murray M.D. on 11/20/2021 at 17:08 ? ? Approved by: Ankur Murray M.D. on 11/20/2021 at 17:09 ? MDM Narrative Medical decision making narrative: Multiple etiologies for patient's symptoms considered including: Cardiac ischemia versus CHF versus other Patient's symptoms improved over duration of stay with above-stated therapies, the subtle elevation in troponin noted, and also repeated is most likely secondary to CHF. I strongly encourage the patient to stay in the hospital to trend out enzymes, diurese and get an echocardiogram, however he refused stating he had to get home to his . We had a lengthy discussion about the risks and benefits and he understands my concern and that this may be an early heart attack and by going home he could suffer worsening symptoms, permanent disability or even . I offered to speak with his or other family members and he states he just needed to get home. He understands he may return immediately for any change in his opinion or thought process. Findings and discharge diagnosis discussed with patient/family followed by verbalization of understanding Return precautions discussed with patient/family whom verbalize understanding. Discharge Plan Departure Patient Disposition: Left Against Medical Advice Clinical Impression: Acute CHF Instructions: DI for Heart Failure Activity Restrictions/Additional Instructions: *You have been diagnosed with shortness of breath and fatigue likely due to acute congestive heart failure, however as we discussed you have a slight inc rease in your troponin and we cannot be sure that this is not the beginning of an early heart attack. I very much hope that he would stay in the hospital but understand you have other issues at hand. Please understand that you may return immediately with any change of heart, and no fear of negative attitudes from us, we will gladly welcome you back with open arms. As we discussed, I'd like to keep you in the hospital, continue to give medications to pull fluid off and follow your blood work as well as order an ultrasound of your heart] *What to do: *Please continue to take your regular medications as directed. [x ] New medication prescriptions sent to your pharmacy: [ [facility] [ ] New medication written as a paper prescription [ ] No new medications given *Please follow up with your primary care provider in 2-3 days, call for an appointment. Let them know you were seen in the Emergency Department and that we ask that you be seen in follow up. We will electronically transmit a record of today's note if your PCP is in our system *If you do not have a primary care provider please contact the [facility] Resource line at [phone]. They will ask some questions about your medical history and help get you set up with a doctor in the community. *Return to Emergency Department if you should have any new, worsening or concerning symptoms Prescriptions: New furosemide [Lasix] 40 mg tablet 40 mg PO DAILY Qty: 3 0RF No Action spironolactone 25 mg tablet 12.5 mg PO QAM metoprolol succinate 50 mg tablet extended release 24 hr 25 mg PO 90 Days methocarbamol 500 mg tablet 500 mg PO TID Myrbetriq 50 mg tablet extended release 24 hr PO levothyroxine 137 mcg tablet 137 mcg PO DAILY mirtazapine 30 mg tablet 30 mg PO BEDTIME Qty: 90 3RF meclizine 12.5 mg tablet 12.5 mg PO DAILY rosuvastatin 20 mg tablet 20 mg PO DAILY tamsulosin 0.4 mg capsule 0.4 mg PO BEDTIME melatonin 5 mg capsule PO BEDTIME apixaban [Eliquis] 5 MG tablet 5 mg PO BID Qty: 0 beclomethasone dipropionate [Qvar] 80 MCG/PUFF aerosol 1 puff INH BID Qty: 0 albuterol sulfate [Ventolin HFA] 90 MCG/PUFF HFA aerosol inhaler 2 puff INH QDAY PRNQty: 0 fluticasone propionate [Flonase Allergy Relief] 9.9 ML spray,suspension 1 spray Intranasal QDAY Qty: 0 lisinopril 10 mg tablet 10 mg PO BID Qty: 0 trazodone 50 mg tablet 50 mg PO HS Qty: 90 3RF hydrocodone-acetaminophen [Aredale] 5-325 mg tablet 1 tab PO Q6H PRN (Reason: pain) Qty: 10 0RF Rx Instructions: May cause drowsiness please take precaution. furosemide [Lasix] 40 mg tablet 40 mg PO DAILY Qty: 4 0RF gabapentin 300 mg capsule 300 mg PO BEDTIME Qty: 14 0RF methylprednisolone [Medrol (Gideon)] 4 mg tablets,dose pack See Rx Instructions .ROUTE .COMPLEX Qty: 21 0RF Rx Instructions: orally per package directions Referrals: Danie Randhawa MD [Primary Care Provider] - Stand Alone Forms: Against Medical Advice
--- NOTE | 2021-11-20 18:54 | PC.NURSE ---
Pt ambulated to restroom and back, pt was short of breath, tachypneic and had difficulty with coordination on return to stretcher. pt needed 2+ assist for repositioning due to SOB and orthopnea. RR 75 sats 90%. 1 word sentences. improving with rest.
--- NOTE | 2021-11-20 19:07 | PC.NURSE ---
pacemaker interrogated, awaiting results.
[2021-11-20] MEDS: FUROSEMIDE 40 MG/4 ML VIAL IV (19:31)
[2021-11-20 22:06] LABS: Creatine Kinase 114 U/L (55-170)
[2021-11-20 22:19] LABS: Troponin I 0.052 ng/mL (0.01-0.034)
[2021-11-20 22:21] LABS: CKMB % Relative Index 2.1 % (1.5-5.0); Creatine Kinase MB 2.42 ng/mL (<2.37)
== END 2021-11-20 23:23 | disposition left against medical advice (07) ==
PROVIDERS: Emergency Medicine; Emergency Provider Emergency Medicine; PCP Family Medicine; Referring Provider Specialist
DX: I50.9 Heart failure, unspecified (principal); R06.02 Shortness of breath; Z20.822 Contact with and (suspected) exposure to COVID-19
CPT/HCPCS: 36415; 71046; 80053; 82550; 82553; 83605; 83880; 84484; 85025; 87635; 93005; 96374; 99284; C9803; J1940

== ENCOUNTER 2021-12-29 10:00 | Emergency (ER) | payer MEDICARE, SELFPAY ==
[2021-12-29 10:41] VITALS: BP 171/103; PULSE 78; RESP 99; TEMP 36.2; O2SAT 100; BMI 34.7
--- NOTE | 2021-12-29 10:47 | DI.RAD.S_ITS ---
PROCEDURE: XR WRIST RT MIN 3V INDICATIONS: fall TECHNIQUE: 4 views of the wrist were acquired. COMPARISON: [facility], CR, XR HIP W PEL IF DONE RT 2V, 12/29/2021, 11:18. FINDINGS: Bones: There is a mildly displaced distal radius fracture seen, with intra-articular involvement. Generalized mild degenerative changes are seen. Scaphoid view: No navicular fractures are seen. Soft tissues: Soft tissue calcification can be seen along the radial aspect of the carpus. IMPRESSION: Distal radius fracture, with intra-articular involvement. If it would be helpful for clinical management decision making in this patient with this given history, please consider a dedicated wrist CT for further evaluation. Dictated by: Ankur Murray M.D. on 12/29/2021 at 11:47 Approved by: Ankur Murray M.D. on 12/29/2021 at 11:48
--- NOTE | 2021-12-29 10:56 | DI.RAD.S_ITS ---
PROCEDURE: XR HIP W PEL IF DONE RT 2V INDICATIONS: fall... TECHNIQUE: AP pelvis with lateral view(s) of the right hip(s). COMPARISON: [facility], CR, XR WRIST RT MIN 3V, 12/29/2021, 11:18. [facility], CR, XR HIP W PEL IF DONE RT 2V, 06/18/2019, 11:01. FINDINGS: Bones: No fractures or dislocations. Pelvic ring appears intact. No suspicious bony lesions. Bilateral hip arthroplasty hardware is seen, which appears stable. Age-appropriate lower lumbar spine degenerative changes are noted. Soft tissues: The visualized bowel gas pattern is normal. No suspicious soft tissue calcifications. Pelvic phleboliths are incidentally noted. IMPRESSION: Unremarkable bilateral hip arthroplasty hardware, without an acute abnormality in this patient status post fall. Dictated by: Ankur Murray M.D. on 12/29/2021 at 11:46 Approved by: Ankur Murray M.D. on 12/29/2021 at 11:47
--- NOTE | 2021-12-29 11:56 | ED_ITS ---
HPI - Extremity Injury (Upper) General Chief Complaint: Extremity Injury, Upper Stated Complaint: GLF- rt arm injury- on thinners Time Seen by Provider: 12/29/21 10:51 Source: patient Mode of arrival: Family Vehicle History of Present Illness HPI narrative: Patient is a likely 76-year-old male history of pacemaker on Eliquis hypertension presenting today after a mechanical ground level fall. He and his for at the oncology counter for her when she heard him fall behind her. He denies hitting his head no loss consciousness he is not nauseous. His only complaint is right wrist pain. He says he did not have a syncopal episode. He denies any chest pain or palpitations. He is quite adamant and would like to leave as soon as possible. X-ray already confirms all right distal radial fracture. He apparently was complaining of some hip pain is well and not x-ray is negative he denies numbness or tingling. Is able to mumble through his wallet easily with both hands Related Data Home Medications Medication Instructions Recorded Confirmed apixaban 5 mg tablet (Eliquis) 5 mg PO BID ##0 09/15/16 06/17/20 albuterol sulfate 90 mcg/actuation 2 puff INH QDAY PRN ##0 09/06/17 06/17/20 aerosol inhaler (Ventolin HFA) beclomethasone dipropionate 80 1 puff INH BID ##0 09/06/17 06/17/20 mcg/actuation aerosol inhaler (Qvar) fluticasone propionate 50 1 spray intranasal QDAY ##0 09/06/17 06/17/20 mcg/actuation nasal spray,suspension (Flonase Allergy Relief) methocarbamol 500 mg tablet 500 mg PO TID 12/22/18 06/17/20 levothyroxine 137 mcg tablet 137 mcg PO DAILY 03/16/19 06/17/20 mirabegron 50 mg tablet,extended mg PO 03/16/19 06/17/20 release 24 hr lisinopril 10 mg tablet 10 mg PO BID #0 tabs 08/31/19 06/17/20 meclizine 12.5 mg tablet 12.5 mg PO DAILY 08/31/19 06/17/20 melatonin 5 mg capsule mg PO BEDTIME 08/31/19 06/17/20 metoprolol succinate 50 mg 25 mg PO 90 days 08/31/19 06/17/20 tablet,extended release 24 hr rosuvastatin 20 mg tablet 20 mg PO DAILY 08/31/19 06/17/20 spironolactone 25 mg tablet 12.5 mg PO QAM 08/31/19 06/17/20 tamsulosin 0.4 mg capsule 0.4 mg PO BEDTIME 08/31/19 06/17/20 Previous Rx's Medication Instructions Recorded hydrocodone 5 mg-acetaminophen 325 1 tab PO Q6H PRN pain #10 tabs 04/03/19 mg tablet (Boswell) furosemide 40 mg tablet (Lasix) 40 mg PO DAILY #4 tabs 05/10/19 mirtazapine 30 mg tablet 30 mg PO BEDTIME #90 tabs 06/17/20 gabapentin 300 mg capsule 300 mg PO BEDTIME #14 caps 10/06/20 methylprednisolone 4 mg tablets in See Rx Instructions PO .COMPLEX 10/06/20 a dose pack (Medrol (Gideon)) #21 ea furosemide 40 mg tablet (Lasix) 40 mg PO DAILY #3 tabs 11/20/21 trazodone 50 mg tablet 50 mg PO HS #90 tabs 12/10/21 Allergies Allergy/AdvReac Type Severity Reaction Status Date / Time No Known Drug Allergies Allergy Verified 11/20/21 17:15 Review of Systems Review of Systems Narrative: GENERAL: Denies chills,fever HEENT: Denies throat pain RESPIRATORY: Denies dyspnea, cough, wheezing CARDIOVASCULAR: Denies chest pain, palpitations GASTROINTESTINAL: Denies nausea, vomiting MUSCULOSKELETAL: See HPI SKIN: No rash, no laceration, no pruritus NEUROLOGIC: Denies weakness, dizziness, headache, numbness 8 point review of systems is negative except for those stated above and HPI Patient History Medical History (Updated 12/29/21 @ 12:14 by Annette Moore DO) CHF (congestive heart failure) Chronic atrial fibrillation Generalized anxiety disorder ICD (implantable cardioverter-defibrillator) in place Major depressive disorder, recurrent episode, moderate Mild neurocognitive disorder Surgical History History of gastric bypass History of hip replacement History of tonsillectomy Presence of cardiac pacemaker Family History Sister Mental health problem Social History Smoking Status: Former smoker Smoking Status: Former smoker alcohol intake frequency: holidays/special occasions only Substance Use Type: does not use Exam Initial Vital Signs Initial Vital Signs: Vital Signs Temperature 97.1 F L 12/29/21 10:41 Pulse Rate 78 12/29/21 10:41 Respiratory Rate 99 H 12/29/21 10:41 Blood Pressure 171/103 H 12/29/21 10:41 Pulse Oximetry 100 12/29/21 10:41 Oxygen Delivery Method 12/29/21 10:41 GENERAL: Cantankerous 76-year-old male no acute distress CARDIOVASCULAR: peripheral pulses in tact, cap refill <2 sec RESPIRATORY: No respiratory distress, speaks in full sentences without difficulty EXTREMITIES: Normal range of motion, no clubbing or edema. Neurovascularly intact No significant bony deformity in right wrist. Good strong distal radial pulse NEUROLOGICAL: Cranial nerves II through XII grossly intact. Normal gait and speech. SKIN: Warm, dry, no petechiae, no rashes or lesions. Procedures Orthopedic Splinting/Casting Injury #1: Upper Extremity Injury Location: wrist Upper Extremity Immobilizer: sling/shoulder immobilizer and sugar tong splint Post splinting neuro exam: intact Post splinting vascular exam: intact Placed by: Nursing Course Orders Ordered: ED Orders 12/29/21 10:47 XR wrist RT min 3V Stat 12/29/21 10:56 XR hip w pel if done RT 2V Stat Vital Signs Vital signs: Vital Signs - 8 hr 12/29/21 10:41 Temperature 97.1 F L Pulse Rate 78 Respiratory Rate 99 H Blood Pressure 171/103 H Pulse Oximetry 100 Oxygen Delivery Method Room Air MDM - Extremity Injury (Upper) Imaging Data Extremity x-ray #1: Radiologist's Impression: XRay Report Signed Patient: Quentin Downing MR#: [id number] : 1945 Acct:[id number] Age/Sex: 76 / M Date of Service: 12/29/21 Loc: ED Accession Number: [id number] ?? Procedure: XR wrist RT min 3V Ordering Provider: Annette Moore D.O. PROCEDURE:? XR WRIST RT MIN 3V ? INDICATIONS: fall ? TECHNIQUE:? 4 views of the wrist were acquired.? ? COMPARISON:? [facility], CR, XR HIP W PEL IF DONE RT 2V, 12/29/2021, 11:18. ? FINDINGS:? ? Bones:? There is a mildly displaced distal radius fracture seen, with intra- articular involvement. ? Generalized mild degenerative changes are seen. ? Scaphoid view:? No navicular fractures are seen. ? Soft tissues:? Soft tissue calcification can be seen along the radial aspect of the carpus. ? ? ? IMPRESSION:? Distal radius fracture, with intra-articular involvement. ? If it would be helpful for clinical management decision making in this patient w ith this given history, please consider a dedicated wrist CT for further evaluation. ? ? Dictated by: Ankur Murray M.D. on 12/29/2021 at 11:47 ? ? Approved by: Ankur Murray M.D. on 12/29/2021 at 11:48 ? Extremity x-ray #2: Radiologist's Impression: USMAN Squires [id number] XRay Report Signed Patient: Quentin Downing MR#: [id number] : 1945 Acct:[id number] Age/Sex: 76 / M Date of Service: 12/29/21 Loc: ED Accession Number: [id number] ?? Procedure: XR hip w pel if done RT 2V Ordering Provider: Annette Moore D.O. PROCEDURE:? XR HIP W PEL IF DONE RT 2V ? INDICATIONS:? fall... ? TECHNIQUE:? AP pelvis with lateral view(s) of the right hip(s).? ? COMPARISON:? [facility], CR, XR WRIST RT MIN 3V, 12/29/2021, 11:18.? [facility], CR, XR HIP W PEL IF DONE RT 2V, 06/18/2019, 11:01. ? FINDINGS:? ? Bones:? No fractures or dislocations.? Pelvic ring appears intact.? No suspicious bony lesions.? ? Bilateral hip arthroplasty hardware is seen, which appears stable. ? Age-appropriate lower lumbar spine degenerative changes are noted. ? Soft tissues:? The visualized bowel gas pattern is normal.? No suspicious soft tissue calcifications.? Pelvic phleboliths are incidentally noted.? ? ? IMPRESSION:? Unremarkable bilateral hip arthroplasty hardware, without an acute abnormality in this patient status post fall. ? Dictated by: Ankur Murray M.D. on 12/29/2021 at 11:46 ? ? Approved by: Ankur Murray M.D. on 12/29/2021 at 11:47 ? MDM Narrative Medical decision making narrative: Patient is ambulatory easily in the emergency department. He is adamant that he did not have a syncopal episode sounds as though is truly mechanical fall. He finally agrees to S splint. He does not want any pain medicine and would like to go home. Discharge Plan Departure Patient Disposition: Home Clinical Impression: Distal radial fracture Instructions: DI for Wrist Fracture Activity Restrictions/Additional Instructions: *You have been diagnosed with distal right radial fracture *What to do: Keep arm in splint at all times. Including showering and bathing. Use sling as needed especially while active You will need to follow up with Orthopedics this may or may not require surgery *Continue to take medications as directed Tylenol 650 mg every 4-6 hours if needed for pain *Follow up with your primary care provider in 2-3 days or call [phone] Call orthopedics today to schedule follow-up appointment *Return to ER if you should have increasing pain, passing out, or chest pain or any new, worsening or concerning symptoms Prescriptions: No Action spironolactone 25 mg tablet 12.5 mg PO QAM metoprolol succinate 50 mg tablet extended release 24 hr 25 mg PO 90 Days methocarbamol 500 mg tablet 500 mg PO TID Myrbetriq 50 mg tablet extended release 24 hr PO levothyroxine 137 mcg tablet 137 mcg PO DAILY mirtazapine 30 mg tablet 30 mg PO BEDTIME Qty: 90 3RF meclizine 12.5 mg tablet 12.5 mg PO DAILY rosuvastatin 20 mg tablet 20 mg PO DAILY tamsulosin 0.4 mg capsule 0.4 mg PO BEDTIME melatonin 5 mg capsule PO BEDTIME apixaban [Eliquis] 5 MG tablet 5 mg PO BID Qty: 0 beclomethasone dipropionate [Qvar] 80 MCG/PUFF aerosol 1 puff INH BID Qty: 0 albuterol sulfate [Ventolin HFA] 90 MCG/PUFF HFA aerosol inhaler 2 puff INH QDAY PRNQty: 0 fluticasone propionate [Flonase Allergy Relief] 9.9 ML spray,suspension 1 spray Intranasal QDAY Qty: 0 lisinopril 10 mg tablet 10 mg PO BID Qty: 0 trazodone 50 mg tablet 50 mg PO HS Qty: 90 0RF hydrocodone-acetaminophen [Boswell] 5-325 mg tablet 1 tab PO Q6H PRN (Reason: pain) Qty: 10 0RF Rx Instructions: May cause drowsiness please take precaution. furosemide [Lasix] 40 mg tablet 40 mg PO DAILY Qty: 4 0RF gabapentin 300 mg capsule 300 mg PO BEDTIME Qty: 14 0RF methylprednisolone [Medrol (Gideon)] 4 mg tablets,dose pack See Rx Instructions .ROUTE .COMPLEX Qty: 21 0RF Rx Instructions: orally per package directions furosemide [Lasix] 40 mg tablet 40 mg PO DAILY Qty: 3 0RF Referrals: [facility] [Provider Group] Danie Randhawa MD [Primary Care Provider] - Visit Report Forms: Patient Portal/API
== END 2021-12-29 12:37 | disposition home or self-care (01) ==
PROVIDERS: Emergency Provider Emergency Medicine; PCP Family Medicine
DX: S52.501A Unspecified fracture of the lower end of right radius, initial encounter for closed fracture (principal); M25.551 Pain in right hip; Z79.01 Long term (current) use of anticoagulants; W19.XXXA Unspecified fall, initial encounter
CPT/HCPCS: 73110; 73502; 99284